=== PATIENT | male | born 1940 | race Caucasian/White ===

== ENCOUNTER 2021-11-10 07:37 | Outpatient (CLI) | payer MEDICARE, SELFPAY ==
--- NOTE | ~2021-11-10 | CT_ITS ---
EXAMINATION: CT abdomen pelvis w con INDICATION: Loss of appetite, constipation, history of colon cancer TECHNIQUE: Computed tomographic images of the abdomen and pelvis were obtained after the administrati on of 100 cc of Omnipaque 300 intravenous contrast. The dose-length product (DLP) was 299.75 mGy-cm. Automated exposure control and iterative reconstruction technique were employed. COMPARISON: None available FINDINGS: Minimal dependent atelectasis is present in the lung bases. The heart size is normal. The g allbladder is surgically absent. Punctate calcifications in an otherwise normal spleen likely represe nt healed granulomatous disease. The liver, pancreas, and adrenal glands are normal. Cysts of the kid neys measure up to 3.8 cm on the right. There is calcified atherosclerosis of the aorta and many of t he other arteries. A staple line is present in the colon in the left upper quadrant. There is moderat e lumbar spondylosis. . IMPRESSION: 1. No CT correlate for the patient's symptoms. Reviewed, dictated and finalized at location B.
[2021-11-10 08:01] LABS: Basophils Absolute Auto 0.03 K/mm3 (0.00-0.10); Basophils Percent Auto 0.4 % (0.0-1.0); Eosinophils Absolute Auto 0.14 K/mm3 (0.02-0.50); Eosinophils Percent Auto 1.8 % (1.0-6.0); Hematocrit 41.8 % (37.0-46.0); Immature Granulocyte Absolute 0.02 K/mm3 (0.00-0.00); Immature Granulocyte Percent A 0.3 % (0.0-0.0); Immature Reticulocyte Fraction 8.3 % (2.0-16.52); Lymphocytes Absolute Auto 2.46 K/mm3 (1.10-4.50); Lymphocytes Percent Auto 31.7 % (18.0-42.0); Mean Corpuscular HGB Conc 33.5 g/dL (32.0-36.0); Mean Corpuscular Hemoglobin 30.2 pg (27.0-31.0); Mean Corpuscular Volume 90.1 fL (78.0-102.0); Mean Platelet Volume 10.5 fl (8.7-11.0); Monocytes Absolute Auto 0.76 K/mm3 (0.10-0.90); Monocytes Percent Auto 9.8 % (2.0-11.0); Neutrophils Absolute Auto 4.4 K/mm3 (1.7-7.2); Platelet Count Result 224 K/mm3 (150-420); Red Blood Count 4.64 M/mm3 (4.70-6.10); Red Cell Distribution Width 13.1 % (11.6-14.4); Reticulocyte Hemoglobin Conten 34.4 pg (28.0-35.0); Reticulocyte Percent 1.08 % (0.50-1.50); Reticulocytes Absolute 0.05 M/mm3 (0.02-0.1); White Blood Count 7.8 K/mm3 (4.8-10.8)
[2021-11-10 08:09] LABS: MALB Creatinine Ratio 7.8 mg/g (0-30); Microalbumin Urine Random 28.5 mg/L
[2021-11-10 08:13] LABS: Add Urine Microscopic? YES; Appearance Urine Clear (Clear); Bilirubin Urine Negative (Negative); Blood Urine Negative (Negative); Color Urine Yellow (Yellow); Glucose Urine UA Negative (Negative); Ketones Urine Trace (Negative); Leukocyte Esterase Ur Negative LEU/UL (Negative); Nitrate Urine Negative (Negative); Protein Urine Negative (Negative); Specific Grav Ur 1.025 (1.010-1.020)
[2021-11-10 08:19] LABS: Bacteria Urine Trace /hpf; Mucus Urine Moderate /lpf; RBC Urine None seen /hpf (0-2); Squamous Epithelial Cell Urine Few /hpf (Few); WBC Urine 0-3 /hpf (0-3)
[2021-11-10 08:48] LABS: Alanine Aminotransferase 18 U/L (16-63); Albumin Level 3.7 g/dL (3.4-5.0); Alkaline Phosphatase 73 U/L (46-116); Anion Gap 6 mmol/L (8-16); Aspartate Amino Transferase 17 U/L (15-37); Bilirubin,Total 0.7 mg/dL (0.00-1.00); Blood Urea Nitrogen 31 mg/dL (7-18); Calcium 8.8 mg/dL (8.5-10.1); Carbon Dioxide 31 mmol/L (21-32); Chloride 102 mmol/L (98-108); Cholesterol 168 mg/dL (0-200); Estimated Glomerular Filt Rate 35; Ferritin 229 ng/mL (26-388); Free T4 Free Thyroxine 1.17 ng/dL (0.76-1.46); Glucose 100 mg/dL (70-99); HDL Direct 70 mg/dL (40-60); Iron 80 ug/dL (65-175); LDL Cholesterol Calculated 83 mg/dL (<130); Osmolality Calculated 294 mOsm/kg (285-295); Potassium 3.7 mmol/L (3.5-5.1); Prostate Specific Antigen 4.3 ng/mL (< OR = 4.0); Sodium 139 mmol/L (136-145); Thyroid Stimulating Hormone 1.97 uIU/mL (0.36-3.74); Total Protein 6.8 g/dL (6.4-8.2); Triglycerides 75 mg/dL (0-150); Vitamin B12 235 pg/mL (193-986)
[2021-11-14 16:38] LABS: Albumin 4.1 g/dL (3.8-4.8); Alpha 1 Globulin 0.3 g/dL (0.2-0.3); Alpha 2 Globulin 0.7 g/dL (0.5-0.9); Beta 1 Globulin 0.3 g/dL (0.4-0.6); Gamma Globulin 0.8 g/dL (0.8-1.7); Protein, Total 6.5 g/dL (6.1-8.1)
[2021-11-14 20:59] LABS: Red Blood Cell Folate 509 ng/mL RBC (>280)
[2021-11-15 20:22] LABS: Vitamin D 25 Hydroxy 37 ng/mL (30-100)
[2021-11-15 21:01] LABS: Carcinoembryonic Antigen 1.4 ng/mL (0.0-2.4)
== END 2021-11-10 07:38 | disposition home or self-care (01) ==
PROVIDERS: PCP Internal Medicine; Visit Provider Internal Medicine
DX: R10.9 Unspecified abdominal pain (principal); R63.4 Abnormal weight loss; Z85.038 Personal history of other malignant neoplasm of large intestine; R79.89 Other specified abnormal findings of blood chemistry; Z85.46 Personal history of malignant neoplasm of prostate; E11.65 Type 2 diabetes mellitus with hyperglycemia; N39.0 Urinary tract infection, site not specified; D64.0 Hereditary sideroblastic anemia; E78.5 Hyperlipidemia, unspecified; I10 Essential (primary) hypertension; E55.9 Vitamin D deficiency, unspecified
CPT/HCPCS: 36415; 74177; 80053; 80061; 81001; 82043; 82306; 82378; 82607; 82728; 82747; 83036; 83540; 84153; 84155; 84165; 84439; 84443; 85025; 85046; Q9967

== ENCOUNTER 2022-01-26 00:28 | Day surgery (SDC) | payer MEDICARE, SELFPAY ==
[2022-01-11 13:23] VITALS: BMI 23.2
[2022-01-26 06:52] VITALS: BP 139/59; PULSE 65; RESP 18; TEMP 36.2; O2SAT 97
[2022-01-26] MEDS: LACTATED RINGERS 1,000 ML 150 ML IV CONT (07:16)
--- NOTE | 2022-01-26 07:49 | WPDANESEPPF ---
Anes - Initial Pre Proc Eval Procedure: Operation Date: 01/26/22 08:00 Proposed Procedures p Esophagogastroduodenoscopy & Colonoscopy - Trae Araiza DO Date/Time: 01/26/22 07:49 Surgeon: Trae Araiza DO Pre Op Diagnosis: dysphagia, hx of colon ca Patient Data Age: 81 Gender: M Height: 1.8 m Weight: 72.4 kg Last Vital Signs Temp 97.1 F L 01/26/22 06:52 Pulse 65 01/26/22 06:52 Resp 18 01/26/22 06:52 BP 139/59 L 01/26/22 06:52 Pulse Ox 97 01/26/22 06:52 O2 Del Method Room Air 01/26/22 06:52 Allergies Allergy/AdvReac Type Severity Reaction Status Date / Time levofloxacin Allergy Hives Verified 01/26/22 06:51 Home Medications Medication Instructions Recorded Confirmed Type amlodipine 10 mg tablet 10 mg PO DAILY 01/11/22 01/11/22 History cyanocobalamin (vitamin B-12) 1,000 mcg PO DAILY 01/11/22 01/11/22 History 1,000 mcg tablet,extended release (Vitamin B-12 ER) docusate sodium 50 mg capsule 50 mg PO TID 01/11/22 01/11/22 History (Stool Softener) losartan 50 mg tablet 50 mg PO DAILY 01/11/22 01/11/22 History multivit with min-folic 1 tablet PO DAILY 01/11/22 01/11/22 History acid-lutein 200 mcg-137.5 mcg chewable tablet (Adult Multivitamin (w-lutein)) pantoprazole 40 mg tablet,delayed 40 mg PO BID 01/11/22 01/11/22 History release tamsulosin 0.4 mg capsule 0.4 mg PO DAILY 01/11/22 01/11/22 History Patient hx anesthesia problems: none Family hx anesthesia problems: none Results Review: All pre-operative results and documents have been reviewed as part of the pre-operative evaluation. FOR[facility], [facility] Social History Social History Smoking status: Never smoker Substance use type: does not use Living arrangements: other Additional living arrangements comments: Lives with Anes - Eval Final PreProcedure Day of Procedure 01/26/22 07:49 Patient weight: normal Heart: irregular rhythm Lungs: clear to auscultation Airway: Mallampati scale class II Neurological: alert and oriented Last oral intake: >/= 8 hours ASA classification: III Emergent: no Anesthetic plan: proceed Anesthesia type and monitoring: general GIVS and standard monitoring Results Review: All pre-operative results and documents have been reviewed as part of the pre-operative evaluation. Informed Consent: The patient's anesthetic plan and its attendant risks and benefits were discussed with the patient/family/POA. Questions were solicited and answers provided to the satisfaction of the patient/family/POA.
--- NOTE | 2022-01-26 07:54 | ECG_ITS ---
Measurements Intervals [place] Rate: 63 P: 49 ME: 159 QRS: 16 QRSD: 98 T: 43 QT: 431 QTc: 441 Interpretive Statements SINUS RHYTHM WITH MARKED SINUS ARRHYTHMIA BASELINE ARTIFACT- II, III, AVR , AVL, AVF BORDERLINE ECG NO PREVIOUS ECG AVAILABLE FOR COMPARISON Electronically Signed On 01-26-2022 8:03:22 CDT by Maximo Brown D.O.
--- NOTE | 2022-01-26 08:10 | PM.IMHP ---
H&P: HPI History of Present Illness Date/Time: 01/26/22 08:10 Chief Complaint: weight loss dysphagia Narrative: this is an 81-year-old man who presents for EGD and colonoscopy. He has a history of colon cancer and last had a colonoscopy about 5 years ago. He has also had some recent weight loss and has some difficulty swallowing solid foods. He denies any hematochezia or melena. Review of Systems Review of Systems: All systems reviewed & are unremarkable except as noted in HPI and below Constitutional: Constitutional: Denies chills, Denies fever(s), Denies headache(s) and Denies weight loss Eyes: Eyes: Denies change in vision ENT: Denies dizziness, Denies headache(s), Denies neck mass and Denies throat swelling Cardiovascular: Cardiovascular: Denies chest pain, Denies lightheadedness and Denies dyspnea Respiratory: Respiratory: Denies cough, Denies dyspnea and Denies wheezing Gastrointestinal: Gastrointestinal: Denies abdominal pain, Denies change in bowel habits, Denies nausea and Denies vomiting Genitourinary: Genitourinary: Denies hematuria and Denies dysuria Musculoskeletal: Musculoskeletal: Reports as per HPI Integumentary/Breasts: Skin/Breast: Reports as per HPI Neurologic: Denies dizziness and Denies headache(s) Allergic/Immunologic: Allergic/Immunologic: Denies throat swelling and Denies wheezing PMFSH Social History Social History Smoking status: Never smoker Substance use type: does not use Living arrangements: other Additional living arrangements comments: Lives with Meds Home Medications and Allergies Home Medications Medication Instructions Recorded Confirmed Type amlodipine 10 mg tablet 10 mg PO DAILY 01/11/22 01/11/22 History cyanocobalamin (vitamin B-12) 1,000 mcg PO DAILY 01/11/22 01/11/22 History 1,000 mcg tablet,extended release (Vitamin B-12 ER) docusate sodium 50 mg capsule 50 mg PO TID 01/11/22 01/11/22 History (Stool Softener) losartan 50 mg tablet 50 mg PO DAILY 01/11/22 01/11/22 History multivit with min-folic 1 tablet PO DAILY 01/11/22 01/11/22 History acid-lutein 200 mcg-137.5 mcg chewable tablet (Adult Multivitamin (w-lutein)) pantoprazole 40 mg tablet,delayed 40 mg PO BID 01/11/22 01/11/22 History release tamsulosin 0.4 mg capsule 0.4 mg PO DAILY 01/11/22 01/11/22 History Allergies Allergy/AdvReac Type Severity Reaction Status Date / Time levofloxacin Allergy Hives Verified 01/26/22 06:51 Vital Signs Vital Signs - 24 hr 01/26/22 06:52 Temperature 36.2 C L Pulse Rate 65 Respiratory Rate 18 Blood Pressure 139/59 L Pulse Oximetry 97 Oxygen Delivery Room Air Exam Const: General: no acute distress and alert Orientation/consciousness: patient oriented x3 HENMT: Head: normocephalic and atraumatic Ears: hearing grossly normal bilaterally General nose exam: Normal nares present Mouth: Yes Normal oral and palatal mucosa present Eyes: Periorbital: periorbital findings normal Sclera: sclerae normal EOM: EOMs intact bilaterally Neck: Neck: normal visual inspection, no lymphadenopathy and trachea midline Chest: Chest palpation & inspection: normal inspection of the chest Resp: Effort & Inspection: normal respiratory effort Auscultation: clear to auscultation bilaterally Cardio: Jugular venous distension: no JVD Rate: regular rate Rhythm: regular rhythm Heart sounds: S1 normal heart sound present and S2 normal heart sound present Peripheral pulses: Peripheral pulses 2+ throughout GI: Inspection: normal to inspection GI Palp: Yes Soft to palpation, No Tenderness to palpation present (GI), No Guarding due to palpation present (GI) and No Rebound tenderness present Percussion: Yes normal to percussion Auscultation: normal bowel sounds : General: Yes no CVA tenderness Back/Spine/Pelvis: Back: no CVA tenderness Neuro: General: patient oriented x3, no focal motor deficits and CN's II-XI intact darryl
--- NOTE | 2022-01-26 08:19 | SUR.OPER ---
EGD COMPLETED AT 08 COLON STARTED AT 08
[2022-01-26 08:47] VITALS: BP 130/46; PULSE 62; RESP 20; O2SAT 99
[2022-01-26 08:58] VITALS: BP 154/66; PULSE 54; RESP 15; O2SAT 99
[2022-01-26 09:12] VITALS: BP 157/77; PULSE 57; RESP 18; O2SAT 97
== END 2022-01-26 09:28 | disposition home or self-care (01) ==
PROVIDERS: PCP Internal Medicine; Visit Provider Surgery
PROC: 0DJ08ZZ Inspection of Upper Intestinal Tract, Via Natural or Artificial Opening Endoscopic (ICD-10-PCS; CPT 43235; principal; 2022-01-26 08:00)
DX: R63.4 Abnormal weight loss (principal); Z85.038 Personal history of other malignant neoplasm of large intestine; K57.30 Diverticulosis of large intestine without perforation or abscess without bleeding; Z98.0 Intestinal bypass and anastomosis status; K64.8 Other hemorrhoids; R13.19 Other dysphagia; K44.9 Diaphragmatic hernia without obstruction or gangrene; K29.00 Acute gastritis without bleeding; I49.9 Cardiac arrhythmia, unspecified
CPT/HCPCS: 45378; 43239; 87081; 93005; J2704; J7120

== ENCOUNTER 2022-01-30 16:11 | Emergency (ER) | payer MEDICARE, SELFPAY ==
--- NOTE | ~2022-01-30 | CT_ITS ---
EXAMINATION: CT abdomen pelvis w con DATE: 01/30/2022 18:35 INDICATION: Abdominal pain TECHNIQUE: Computed tomography (CT) of the abdomen and pelvis was performed with 100 mL Omnipaque-350 intravenous contrast. Automated exposure control and iterative reconstruction technique were employe d. The dose-length product was 365.53 mGy-cm. COMPARISON: 11/20/2021 FINDINGS: Central pulmonary arterial filling defects within segmental and subsegmental pulmonary arteries in th e right lower lobe consistent with pulmonary emboli. Groundglass opacities in the basilar segments of the right lower lobe consistent with secondary pulmonary infarcts. Linear/bandlike discoid atelectas is in the left lower lobe and lingula. Heart size is normal. No leftward bowing of the ventricular se ptum to suggest right heart strain. No pericardial or pleural effusion. Mild intrahepatic biliary yamileth mayra dilation likely related to prior cholecystectomy with surgical clips at the gallbladder fossa. A few tiny splenic calcific lesions consistent with old granulomatous disease. Pancreas, bilateral adre nal glands are normal. Bilateral renal cysts the largest on the right measuring up to 3.7 cm. Anastom otic suture line along the transverse colon. Bladder is normal. Mild prostatomegaly. Bilateral fat-co ntaining inguinal hernias, left greater than right with change of prior bilateral inguinal hernia rep airs. No free intraperitoneal gas or fluid. No pathologically enlarged abdominal or pelvic lymphadeno agus. There is calcified atherosclerosis of the aorta and many of the other arteries. Moderate lumba r spondylosis with 4 mm anterolisthesis L4 on L5. IMPRESSION: 1. 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 Dr. Iniguez discussed these findings with Dr. Gilliam at 7:18 PM. 2. No acute intra-abdominal/pelvic process. Reviewed, dictated and finalized at location A. IMPRESSION: 1. 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 Dr. Hermilo petit discussed these findings with Dr. Gilliam at 7:18 PM. 2. No acute intra-abdominal/pelvic process.
[2022-01-30 16:31] VITALS: BP 153/72; PULSE 74; RESP 22; TEMP 36.6; O2SAT 94
[2022-01-30 17:25] LABS: Appearance Urine Clear (Clear); Basophils Absolute Auto 0.03 K/mm3 (0.00-0.10); Basophils Percent Auto 0.3 % (0.0-1.0); Bilirubin Urine 1+ (Negative); Color Urine Yellow (Yellow); Eosinophils Absolute Auto 0.06 K/mm3 (0.02-0.50); Eosinophils Percent Auto 0.5 % (1.0-6.0); Glucose Urine UA Negative (Negative); Hematocrit 38.5 % (37.0-46.0); Hemoglobin 12.7 g/dL (12.4-15.3); Immature Granulocyte Absolute 0.03 K/mm3 (0.00-0.00); Immature Granulocyte Percent A 0.3 % (0.0-0.0); Ketones Urine 1+ (Negative); Leukocyte Esterase Ur Negative LEU/UL (Negative); Lymphocytes Absolute Auto 1.81 K/mm3 (1.10-4.50); Lymphocytes Percent Auto 15.8 % (18.0-42.0); Mean Corpuscular Hemoglobin 30.2 pg (27.0-31.0); Mean Corpuscular Volume 91.4 fL (78.0-102.0); Mean Platelet Volume 11.1 fl (8.7-11.0); Monocytes Absolute Auto 0.88 K/mm3 (0.10-0.90); Monocytes Percent Auto 7.7 % (2.0-11.0); Neutrophils Absolute Auto 8.7 K/mm3 (1.7-7.2); Neutrophils Percent Auto 75.4 % (50.0-70.0); Nitrate Urine Negative (Negative); Platelet Count Result 152 K/mm3 (150-420); Protein Urine 2+ (Negative); Red Blood Count 4.21 M/mm3 (4.70-6.10); Red Cell Distribution Width 13.2 % (11.6-14.4); Specific Grav Ur >= 1.030 (1.010-1.020); White Blood Count 11.5 K/mm3 (4.8-10.8)
[2022-01-30 17:32] LABS: Add Urine Microscopic? YES; Blood Urine Trace-Intact (Negative); RBC Urine 0-2 /hpf (0-2); Squamous Epithelial Cell Urine Few /hpf (Few); WBC Urine None seen /hpf (0-3)
[2022-01-30] MEDS: SODIUM CHLORIDE 0.9% IV 500 ML 999 ML IV CONT (17:32)
[2022-01-30 17:33] LABS: Bacteria Urine Trace /hpf; Mucus Urine Few /lpf
[2022-01-30] MEDS: MORPHINE SULFATE (*CRX) 4 MG/ML INJ IV PUSH (17:35)
[2022-01-30 17:37] LABS: Lipase 72 U/L (73-393)
[2022-01-30 17:40] LABS: Alanine Aminotransferase 18 U/L (16-63); Albumin Level 3.5 g/dL (3.4-5.0); Alkaline Phosphatase 84 U/L (46-116); Anion Gap 6 mmol/L (8-16); Aspartate Amino Transferase 15 U/L (15-37); Bilirubin,Total 1.1 mg/dL (0.00-1.00); Blood Urea Nitrogen 31 mg/dL (7-18); Calcium 8.9 mg/dL (8.5-10.1); Carbon Dioxide 29 mmol/L (21-32); Chloride 101 mmol/L (98-108); Estimated CRCL calculation 36 ml/min; Estimated Glomerular Filt Rate 47; Glucose 113 mg/dL (70-99); Osmolality Calculated 289 mOsm/kg (285-295); Potassium 3.9 mmol/L (3.5-5.1); Sodium 136 mmol/L (136-145); Total Protein 6.8 g/dL (6.4-8.2)
[2022-01-30 17:43] LABS: Lactic Acid Reflex 1.1 mmol/L (0.4-2.0)
[2022-01-30 17:45] LABS: Partial Thromboplastin Time 27.7 SEC (23.90-30.70)
--- NOTE | 2022-01-30 18:26 | ED.GENADULT ---
HPI - General Adult General Chief complaint: Abdominal Pain Stated complaint: stomach pains Time Seen by Provider: 01/30/22 16:47 History of Present Illness HPI narrative: Gonzalo presented to the emergency department with abdominal pain that started last night. He reports cramping abdominal pain in the right side of his abdomen. He had a colonoscopy 4 days ago but has not had a BM since. He has had a little nausea but no vomiting. He has had increased urinary frequency for the last few months. There are no fevers, chills, CP, cough or SOB reported. Related Data Home Medications Medication Instructions Recorded Confirmed amlodipine 10 mg tablet 10 mg PO DAILY 01/11/22 01/30/22 cyanocobalamin (vitamin B-12) 1,000 mcg PO DAILY 01/11/22 01/30/22 1,000 mcg tablet,extended release (Vitamin B-12 ER) docusate sodium 50 mg capsule 50 mg PO TID 01/11/22 01/30/22 (Stool Softener) losartan 50 mg tablet 50 mg PO DAILY 01/11/22 01/30/22 multivit with min-folic 1 tablet PO DAILY 01/11/22 01/30/22 acid-lutein 200 mcg-137.5 mcg chewable tablet (Adult Multivitamin (w-lutein)) pantoprazole 40 mg tablet,delayed 40 mg PO BID 01/11/22 01/30/22 release tamsulosin 0.4 mg capsule 0.4 mg PO DAILY 01/11/22 01/30/22 Allergies Allergy/AdvReac Type Severity Reaction Status Date / Time levofloxacin Allergy Hives Verified 01/30/22 16:43 Review of Systems Review of Systems: All systems reviewed & are unremarkable except as noted in HPI and below PMFSH Social History Social History Smoking status: Never smoker Substance use type: does not use Additional living arrangements comments: Lives with Exam Const: General: healthy appearing and no acute distress Nutritional Appearance: well nourished Orientation/consciousness: patient oriented x3 HENMT: Head: normal to inspection Ears: external ears normal General nose exam: Normal external nose present Eyes: Conjunctivae: conjunctivae normal Pupils: Equal, round and reactive pupils present EOM: EOMs intact bilaterally Neck: Neck: normal visual inspection Chest: Chest palpation & inspection: normal inspection of the chest Resp: Effort & Inspection: normal respiratory effort Auscultation: clear to auscultation bilaterally Cardio: Rate: regular rate Rhythm: regular rhythm GI: Other: Normal bowel sounds. TTP in the RLQ. No rebound tenderness or guarding. : Other: No CVA tenderness Skin: General skin exam: normal color Rashes: no rashes Neuro: General: patient oriented x3 and moves all extremities Extrem: General: normal to inspection Psych: Mental Status: mental status grossly normal Course Course Emergency Course: Given morphine and fluids EXAMINATION: CT abdomen pelvis w con DATE: 01/30/2022 18:35 INDICATION: Abdominal pain TECHNIQUE: Computed tomography (CT) of the abdomen and pelvis was performed with 100 mL Omnipaque-350 intravenous contrast. Automated exposure control and iterative reconstruction technique were employed. The dose-length product was 365.53 mGy-cm. COMPARISON: 11/20/2021 FINDINGS: Central pulmonary arterial filling defects within segmental and subsegmental pulmonary arteries in the right lower lobe consistent with pulmonary emboli. Groundglass opacities in the basilar segments of the right lower lobe consistent with secondary pulmonary infarcts. Linear/bandlike discoid atelectasis in the left lower lobe and lingula. Heart size is normal. No leftward bowing of the ventricular septum to suggest right heart strain. No pericardial or pleural effusion. Mild intrahepatic biliary ductal dilation likely related to prior cholecystectomy with surgical clips at the gallbladder fossa. A few tiny splenic calcific lesions consistent with old granulomatous disease. Pancreas, bilateral adrenal glands are normal. Bilateral renal cysts the largest on the right measuring up to 3.7 cm. Anastomotic suture line along the transverse colo
[2022-01-30] MEDS: ENOXAPARIN 100 MG/ML SYRINGE 74 MG SUB-Q (20:06)
--- NOTE | 2022-01-30 20:15 | PC.NURSE ---
pt heart rate 35-39. Md Suarez at bedside and pt is cleared for discharge.
--- NOTE | 2022-01-30 20:37 | PC.NURSE ---
pt cleared for discharge per Md Suarez (see previous note) and MD Boyer.
[2022-01-30 20:53] VITALS: BP 164/69; PULSE 38; RESP 18; TEMP 36.8; O2SAT 93
== END 2022-01-30 20:59 | disposition home or self-care (01) ==
PROVIDERS: Emergency Provider Family Medicine; PCP Internal Medicine
DX: I26.99 Other pulmonary embolism without acute cor pulmonale (principal)
CPT/HCPCS: 36415; 74177; 80053; 81001; 83605; 83690; 85025; 85610; 85730; 96361; 96372; 96374; 99284; J1650; J2270; J7040; Q9967

== ENCOUNTER 2022-03-31 09:32 | Outpatient (RCR) | payer MEDICARE, SELFPAY ==
[2022-03-13 10:24] LABS: INR 2.8; Prothrombin Time 27.8 Seconds (9.50-12.10)
[2022-03-20 10:27] LABS: INR 4.6; Prothrombin Time 44.2 Seconds (9.50-12.10)
[2022-03-24 10:41] LABS: INR 4.1
[2022-03-31 10:02] LABS: INR 2.2; Prothrombin Time 22.4 Seconds (9.50-12.10)
== END 2022-06-11 23:59 | disposition home or self-care (01) ==
LOC: CHSLAB 09:32
PROVIDERS: PCP Internal Medicine; Visit Provider Internal Medicine
DX: I48.91 Unspecified atrial fibrillation (principal)
CPT/HCPCS: 36415; 85610

== ENCOUNTER 2022-05-17 13:08 | Outpatient (CLI) | payer MEDICARE, SELFPAY ==
[2022-05-17 13:31] LABS: Basophils Absolute Auto 0.05 K/mm3 (0.00-0.10); Basophils Percent Auto 0.6 % (0.0-1.0); Eosinophils Absolute Auto 0.06 K/mm3 (0.02-0.50); Eosinophils Percent Auto 0.8 % (1.0-6.0); Hematocrit 40.1 % (37.0-46.0); Hemoglobin 13.2 g/dL (12.4-15.3); Immature Granulocyte Absolute 0.02 K/mm3 (0.00-0.00); Immature Granulocyte Percent A 0.3 % (0.0-0.0); Lymphocytes Absolute Auto 3.12 K/mm3 (1.10-4.50); Lymphocytes Percent Auto 39.1 % (18.0-42.0); Mean Corpuscular HGB Conc 32.9 g/dL (32.0-36.0); Mean Corpuscular Hemoglobin 29.8 pg (27.0-31.0); Mean Corpuscular Volume 90.5 fL (78.0-102.0); Mean Platelet Volume 10.3 fl (8.7-11.0); Monocytes Absolute Auto 0.56 K/mm3 (0.10-0.90); Neutrophils Absolute Auto 4.2 K/mm3 (1.7-7.2); Neutrophils Percent Auto 52.2 % (50.0-70.0); Platelet Count Result 213 K/mm3 (150-420); Red Blood Count 4.43 M/mm3 (4.70-6.10); Red Cell Distribution Width 14.1 % (11.6-14.4)
[2022-05-17 13:44] LABS: INR 2.1; Prothrombin Time 21.5 Seconds (9.50-12.10)
[2022-05-17 13:46] LABS: Alanine Aminotransferase 16 U/L (16-63); Albumin Level 3.8 g/dL (3.4-5.0); Alkaline Phosphatase 75 U/L (46-116); Anion Gap 6 mmol/L (8-16); Aspartate Amino Transferase 13 U/L (15-37); Bilirubin,Total 0.7 mg/dL (0.00-1.00); Blood Urea Nitrogen 29 mg/dL (7-18); Calcium 8.5 mg/dL (8.5-10.1); Carbon Dioxide 30 mmol/L (21-32); Chloride 101 mmol/L (98-108); Estimated Glomerular Filt Rate 38; Glucose 101 mg/dL (70-99); Osmolality Calculated 289 mOsm/kg (285-295); Potassium 4.1 mmol/L (3.5-5.1); Sodium 137 mmol/L (136-145); Total Protein 6.8 g/dL (6.4-8.2)
== END 2022-05-17 13:09 | disposition home or self-care (01) ==
LOC: CHSLAB 13:11
PROVIDERS: PCP Internal Medicine; Visit Provider Internal Medicine
DX: R10.31 Right lower quadrant pain (principal); N18.30 Chronic kidney disease, stage 3 unspecified; Z79.01 Long term (current) use of anticoagulants
CPT/HCPCS: 36415; 80053; 85025; 85610

== ENCOUNTER 2022-05-18 13:54 | Outpatient (CLI) | payer MEDICARE, SELFPAY ==
--- NOTE | ~2022-05-18 | CT_ITS ---
EXAMINATION: CT abdomen pelvis wo con DATE: 05/18/2022 14:23 INDICATION: Acute right upper quadrant abdominal pain. TECHNIQUE: Computed tomography (CT) of the abdomen and pelvis was performed without intravenous contr ast. Automated exposure control and iterative reconstruction technique were employed. The dose-length product was 308.92 mGy-cm. COMPARISON: CT abdomen and pelvis 01/30/2022 FINDINGS: The visualized portions of the lung bases demonstrate mild atelectasis and scarring. Calcif ied right lung nodules are consistent with old granulomatous disease. No pleural effusion. The heart size is normal. No pericardial effusion. Calcifications in the liver and spleen are consistent with o ld granulomatous disease. There are changes of cholecystectomy. The pancreas and adrenal glands are n ormal. There is cortical thinning of the kidneys. There are cysts in the kidneys measuring up to 3.9 cm on the right. The prostate is mildly enlarged. There is diverticulosis of the colon without eviden ce of diverticulitis. There is an anastomosis in the colon. The appendix is normal. There are no dila namita loops of bowel. There are changes of bilateral inguinal hernia repairs. There is prominent fat in left inguinal canal that may be a recurrent hernia or the normal postoperative appearance. There are no pathologically enlarged lymph nodes. There is no free intraperitoneal fluid. There is severe lumb ar spondylosis. Lumbar levocurvature is noted. IMPRESSION: 1. No specific etiology for the patient's symptoms. Reviewed, dictated and finalized at location A. [facility]
== END 2022-05-18 13:55 | disposition home or self-care (01) ==
LOC: CHSIMG 13:56
PROVIDERS: PCP Internal Medicine; Visit Provider Internal Medicine
DX: R10.31 Right lower quadrant pain (principal); Z79.01 Long term (current) use of anticoagulants; N18.30 Chronic kidney disease, stage 3 unspecified
CPT/HCPCS: 74176

== ENCOUNTER 2022-07-31 10:06 | Outpatient (CLI) | payer MEDICARE, SELFPAY ==
[2022-07-31 10:23] LABS: Basophils Absolute Auto 0.04 K/mm3 (0.00-0.10); Basophils Percent Auto 0.6 % (0.0-1.0); Eosinophils Absolute Auto 0.12 K/mm3 (0.02-0.50); Eosinophils Percent Auto 1.7 % (1.0-6.0); Hematocrit 40.1 % (37.0-46.0); Hemoglobin 13.4 g/dL (12.4-15.3); Immature Granulocyte Absolute 0.01 K/mm3 (0.00-0.00); Immature Granulocyte Percent A 0.1 % (0.0-0.0); Lymphocytes Absolute Auto 2.88 K/mm3 (1.10-4.50); Lymphocytes Percent Auto 41.1 % (18.0-42.0); Mean Corpuscular HGB Conc 33.4 g/dL (32.0-36.0); Mean Corpuscular Hemoglobin 30.3 pg (27.0-31.0); Mean Corpuscular Volume 90.7 fL (78.0-102.0); Mean Platelet Volume 10.7 fl (8.7-11.0); Monocytes Absolute Auto 0.53 K/mm3 (0.10-0.90); Monocytes Percent Auto 7.6 % (2.0-11.0); Neutrophils Absolute Auto 3.4 K/mm3 (1.7-7.2); Neutrophils Percent Auto 48.9 % (50.0-70.0); Platelet Count Result 205 K/mm3 (150-420); Red Blood Count 4.42 M/mm3 (4.70-6.10); Red Cell Distribution Width 13.5 % (11.6-14.4)
[2022-07-31 11:42] LABS: Alanine Aminotransferase 19 U/L (16-63); Albumin Level 3.7 g/dL (3.4-5.0); Alkaline Phosphatase 80 U/L (46-116); Anion Gap 8 mmol/L (8-16); Aspartate Amino Transferase 17 U/L (15-37); Bilirubin,Total 0.6 mg/dL (0.00-1.00); Blood Urea Nitrogen 28 mg/dL (7-18); Calcium 8.8 mg/dL (8.5-10.1); Carbon Dioxide 30 mmol/L (21-32); Chloride 105 mmol/L (98-108); Estimated Glomerular Filt Rate 40; Glucose 106 mg/dL (70-99); NT Pro B Type Natriuretic Pept 1088 pg/mL (0-450); Osmolality Calculated 301 mOsm/kg (285-295); Potassium 4.4 mmol/L (3.5-5.1); Sodium 143 mmol/L (136-145); Total Protein 6.6 g/dL (6.4-8.2); Uric Acid 5.4 mg/dL (3.5-7.2)
[2022-07-31 11:43] LABS: CRP < 0.5 mg/dL (0.0-0.9)
== END 2022-07-31 10:07 | disposition home or self-care (01) ==
LOC: CHSLAB 10:09
PROVIDERS: PCP Internal Medicine; Visit Provider Nurse Practitioner Family
DX: M79.89 Other specified soft tissue disorders (principal); I50.9 Heart failure, unspecified; M79.673 Pain in unspecified foot
CPT/HCPCS: 36415; 80053; 83880; 84550; 85025; 86140

== ENCOUNTER 2022-08-11 13:26 | Outpatient (CLI) | payer MEDICARE, SELFPAY ==
--- NOTE | 2022-08-11 14:12 | ECHO_ITS ---
Patient Info Name: Gonzalo Hernandez Age: 82 years : 1940 Gender: Male Ht: 72 in Wt: 174 lbs BSA: 2.00 m2 HR: 66 bpm BP: 177 / 75 mmHg Technical Quality: Good Exam Date: 08/11/2022 1:27 PM Exam Location: [facility] Patient Status: Outpatient Admit Date: 08/11/2022 Staff Ordering Physician: Monique Sandy MD Ore Crusher: Tom Kohler RDCS, RT Attending Provider: Monique Sandy MD Referring Physician: Du COWART; Exam Type: CA echo doppler color flow Study Info Indications - lower extremity edema I50.9 - Heart failure, unspecified Complete two-dimensional, color flow and Doppler transthoracic echocardiogram is performed. Strain analysis performed. Summary 1. Complete two-dimensional, color flow and Doppler transthoracic echocardiogram is performed. 2. Left ventricular chamber dimension is normal. 3. Left ventricular systolic function is normal, estimated at 55-60%. 4. There is mild concentric increased left ventricular wall thickness. 5. The left ventricular diastolic function is abnormal. 6. E/e' 18 is elevated. 7. Global longitudinal strain is abnormal at -13.1%. 8. Left atrial chamber dimension is mildly enlarged. 9. There is mild aortic valve sclerosis. 10. There is mild mitral valve regurgitation. 11. There is trace tricuspid valve regurgitation. 12. No pulmonary hypertension, estimated pulmonary arterial systolic pressure is 36 mmHg. 13. There is trivial pericardial effusion. Left Ventricle E/e' 18 is elevated. Global longitudinal strain is abnormal at -13.1%. Left ventricular chamber dimension is normal. Left ventricular systolic function is normal, estimated at 55-60%. There is mild concentric increased left ventricular wall thickness. The left ventricular diastolic function is abnormal. Right Ventricle Right ventricular systolic function is normal and with normal TAPSE 2.1 cm. Right ventricular chamber dimension is normal. Left Atria Left atrial chamber dimension is mildly enlarged. Right Atria Right atrial chamber dimension is normal. Aortic Valve The aortic valve is trileaflet. There is mild aortic valve sclerosis. There is no aortic valve stenosis. There is no aortic valve regurgitation. Pulmonic Valve There is no pulmonic regurgitation. Mitral Valve There is no mitral valve stenosis. There is mild mitral valve regurgitation. Tricuspid Valve There is trace tricuspid valve regurgitation. No pulmonary hypertension, estimated pulmonary arterial systolic pressure is 36 mmHg. Pericardium/Pleural There is trivial pericardial effusion. Inferior Vena Cava Normal inferior vena cava with >50% collapse upon inspiration consistent with normal right atrial pressure, 5 mmHg. Aorta The aortic root size at the sinus of Valsalva is normal. Left Ventricular Outflow Tract Name Value Normal LVOT 2D LVOT Diameter 2.0 cm LVOT Doppler LVOT Peak Velocity 95 cm/s LVOT Peak Gradient 2 mmHg LVOT Mean Gradient 1 mmHg LVOT VTI 26 cm
== END 2022-08-11 13:27 | disposition home or self-care (01) ==
LOC: CHSIMG 13:27
PROVIDERS: PCP Internal Medicine; Visit Provider Internal Medicine
DX: I50.9 Heart failure, unspecified (principal); I08.0 Rheumatic disorders of both mitral and aortic valves
CPT/HCPCS: 93306

== ENCOUNTER 2022-08-25 16:12 | Emergency (ER) | payer MEDICARE, SELFPAY ==
[2022-08-25] VITALS (21 sets, daily range): BP systolic 138–231; BP diastolic 53–81; PULSE 66–84; RESP 14–28; TEMP 36.6; O2SAT 96–100
--- NOTE | ~2022-08-25 | CT_ITS ---
Non-contrast Head CT History: Headache, weakness Technique: Axial non-contrast imaging of the brain was performed. Dose reduction technique was used on this scan by utilizing automated exposure control and iterative reconstruction technique. The dose -length product (DLP) was 605.33 mGy-cm. Findings: There is no evidence of intracranial hemorrhage, mass lesion, or acute infarct. Brain par enchyma appears normal. The ventricles and subarachnoid spaces are normal in size. The calvarium ap pears normal. The visualized paranasal sinuses and mastoid air cells are clear. Impression: No significant abnormality seen. Reviewed, dictated and finalized at location . Impression: No significant abnormality seen.
--- NOTE | 2022-08-25 16:32 | ECG_ITS ---
Measurements Intervals [place] Rate: 61 P: 47 MD: 156 QRS: 36 QRSD: 101 T: 49 QT: 435 QTc: 439 Interpretive Statements SINUS RHYTHM WITH OCCASIONAL VENTRICULAR PREMATURE COMPLEXES WITH OCCASIONAL SUPRAVENTRICULAR PREMATURE COMPLEXES NONSPECIFIC ST & T-WAVE ABNORMALITY ABNORMAL ECG COMPARED TO ECG 01/26/2022 08:03:31 PVC IS DEMONSTRATED Electronically Signed On 08-26-2022 7:47:01 CDT by Conor Ruiz M.D.
--- NOTE | 2022-08-25 16:33 | ED.GENADULT ---
HPI - General Adult General Chief complaint: Dizziness Stated complaint: high blood pressure, dizziness, headache Time Seen by Provider: 08/25/22 16:22 History of Present Illness HPI narrative: the patient is an 82-year-old male with history of hypertension that used to be on losartan 50 mg daily and amlodipine 10 mg daily that was changed recently to 50 mg losartan b.i.d. with discontinuation of the amlodipine. He was seen here 01/30/2022 for a pulmonary embolus and was placed on Eliquis with subsequent was changed to warfarin which he currently is on. At that time, his blood pressure was 153/72. History of GERD hypertension and colon cancer. Last echocardiogram 08/11/2022 revealed an LV ejection fraction of 55-60% with mild left ventricular hypertrophy. The patient takes his blood pressure daily. His machine appeared not to be working today and was giving him an error message. He went to the pharmacy whereby he also got another air message. The pharmacist checked his blood pressure was quite elevated, 210/107. He was referred here for further evaluation due to his hypertension. He did take his losartan this morning and the 2 doses of losartan yesterday but missed the evening dose of losartan the previous day, 08/23/2022. Other associated symptoms include mild dizziness and mild discomfort in both temples. No chest pain or dyspnea. No nausea vomiting. No vertigo. No other symptoms. Related Data Home Medications Medication Instructions Recorded Confirmed cyanocobalamin (vitamin B-12) 1,000 mcg PO DAILY 01/11/22 08/25/22 1,000 mcg tablet,extended release (Vitamin B-12 ER) docusate sodium 50 mg capsule 50 mg PO TID 01/11/22 08/25/22 (Stool Softener) losartan 50 mg tablet 50 mg PO BID 01/11/22 08/25/22 multivit with min-folic 1 tablet PO DAILY 01/11/22 08/25/22 acid-lutein 200 mcg-137.5 mcg chewable tablet (Adult Multivitamin (w-lutein)) pantoprazole 40 mg tablet,delayed 40 mg PO BID 01/11/22 08/25/22 release tamsulosin 0.4 mg capsule 0.4 mg PO DAILY 01/11/22 08/25/22 finasteride 5 mg tablet 5 mg PO DAILY 08/25/22 08/25/22 warfarin 4 mg tablet 4 mg PO DAILY 08/25/22 08/25/22 Allergies Allergy/AdvReac Type Severity Reaction Status Date / Time levofloxacin Allergy Hives Verified 01/30/22 16:43 Review of Systems Review of Systems: All systems reviewed & are unremarkable except as noted in HPI and below Constitutional: Constitutional: Reports as per HPI, Reports no additional constitutional complaints, Denies chills, Denies excessive sweating, Denies fatigue, Denies fever(s), Reports headache(s) (mild) and Denies weakness Eyes: Eyes: Reports as per HPI, Reports no additional eye complaints, Denies change in vision and Denies photophobia ENT: Reports system reviewed and no additional complaints, except as documented, Reports as per HPI, Denies dysphagia, Denies vertigo, Reports dizziness (mild), Denies lip swelling, Denies nasal congestion, Denies sore throat, Denies throat swelling and Denies tongue swelling Cardiovascular: Cardiovascular: Reports as per HPI, Reports no additional cardiovascular complaints, Denies chest pain, Denies syncope, Denies rapid heart rate and Denies dyspnea Respiratory: Respiratory: Reports as per HPI, Reports no additional respiratory complaints, Denies chest congestion, Denies cough, Denies dyspnea and Denies wheezing Gastrointestinal: Gastrointestinal: Reports as per HPI, Reports no additional gastrointestinal complaints, Denies abdominal pain, Denies constipation, Denies dysphagia, Denies diarrhea, Denies nausea and Denies vomiting Genitourinary: Genitourinary: Reports as per HPI, Denies hematuria, Denies oliguria, Denies dysuria, Denies urinary frequency, Denies urinary incontinence and Denies urinary urgency Musculoskeletal: Musculoskeletal: Reports no additional musculoskeletal complaints, Denies back pain, Denies myalgias, Denies arthralgias, Denies joint swelling and Denies
[2022-08-25] MEDS: ACETAMINOPHEN 500 MG TABLET 1000 MG PO (16:54)
[2022-08-25 16:55] LABS: Basophils Absolute Auto 0.03 K/mm3 (0.00-0.10); Basophils Percent Auto 0.4 % (0.0-1.0); Eosinophils Absolute Auto 0.08 K/mm3 (0.02-0.50); Eosinophils Percent Auto 1.2 % (1.0-6.0); Hematocrit 39.7 % (37.0-46.0); Hemoglobin 12.8 g/dL (12.4-15.3); Immature Granulocyte Absolute 0.01 K/mm3 (0.00-0.00); Immature Granulocyte Percent A 0.1 % (0.0-0.0); Lymphocytes Absolute Auto 2.25 K/mm3 (1.10-4.50); Lymphocytes Percent Auto 33.5 % (18.0-42.0); Mean Corpuscular HGB Conc 32.2 g/dL (32.0-36.0); Mean Corpuscular Hemoglobin 29.7 pg (27.0-31.0); Mean Corpuscular Volume 92.1 fL (78.0-102.0); Monocytes Absolute Auto 0.55 K/mm3 (0.10-0.90); Monocytes Percent Auto 8.2 % (2.0-11.0); Neutrophils Absolute Auto 3.8 K/mm3 (1.7-7.2); Neutrophils Percent Auto 56.6 % (50.0-70.0); Platelet Count Result 205 K/mm3 (150-420); Red Blood Count 4.31 M/mm3 (4.70-6.10); Red Cell Distribution Width 13.6 % (11.6-14.4); White Blood Count 6.7 K/mm3 (4.8-10.8)
[2022-08-25] MEDS: hydrALAZINE HCL 20 MG/ML VIAL IV PUSH (16:57)
[2022-08-25 17:09] LABS: INR 2.3; Partial Thromboplastin Time 34.2 SEC (23.90-30.70); Prothrombin Time 23.5 Seconds (9.50-12.10)
[2022-08-25 17:11] LABS: Appearance Urine Clear (Clear); Bilirubin Urine Negative (Negative); Color Urine Light Yellow (Yellow); Glucose Urine UA Negative (Negative); Ketones Urine Negative (Negative); Leukocyte Esterase Ur Negative LEU/UL (Negative); Nitrate Urine Negative (Negative); Protein Urine 1+ (Negative); Urobilinogen Urine 0.2 mg/dL (0.2-1.0)
[2022-08-25 17:16] LABS: Add Urine Microscopic? YES; Bacteria Urine Rare /hpf; Blood Urine Trace-lysed (Negative); Squamous Epithelial Cell Urine Few /hpf (Few); WBC Urine None seen /hpf (0-3)
[2022-08-25 17:18] LABS: Alanine Aminotransferase 17 U/L (16-63); Albumin Level 3.4 g/dL (3.4-5.0); Alkaline Phosphatase 75 U/L (46-116); Anion Gap 7 mmol/L (8-16); Aspartate Amino Transferase 18 U/L (15-37); Bilirubin,Total 0.5 mg/dL (0.00-1.00); Blood Urea Nitrogen 22 mg/dL (7-18); Calcium 8.3 mg/dL (8.5-10.1); Carbon Dioxide 31 mmol/L (21-32); Chloride 106 mmol/L (98-108); Estimated CRCL calculation 37 ml/min; Estimated Glomerular Filt Rate 49; Glucose 105 mg/dL (70-99); NT Pro B Type Natriuretic Pept 5678 pg/mL (0-450); Osmolality Calculated 301 mOsm/kg (285-295); Potassium 4.1 mmol/L (3.5-5.1); Sodium 144 mmol/L (136-145); Total Protein 6.5 g/dL (6.4-8.2); Troponin I 24.7 ng/L (0.00-60.4)
--- NOTE | 2022-08-25 17:18 | PC.NURSE ---
Pt stands bedside to use urinal per self, at bedside, pt c/o some dizziness, but no other c/o. Call byrd at pt side.
[2022-08-25] MEDS: hydrALAZINE HCL 20 MG/ML VIAL 10 MG IV PUSH (18:30)
--- NOTE | 2022-08-25 18:33 | PC.NURSE ---
Pt stands bedside per self to use urinal and back to bed, he denies any sx at this time and denies dizziness at this time. Monitoring BP p meds given, will continue to assess.
== END 2022-08-25 19:15 | disposition home or self-care (01) ==
PROVIDERS: Emergency Provider Emergency Medicine; PCP Internal Medicine
DX: I16.9 Hypertensive crisis, unspecified (principal); R42 Dizziness and giddiness; Z79.01 Long term (current) use of anticoagulants; Z85.038 Personal history of other malignant neoplasm of large intestine
CPT/HCPCS: 36415; 70450; 80053; 81001; 83880; 84484; 85025; 85610; 85730; 93005; 96374; 96376; 99284; J0360

== ENCOUNTER 2022-11-17 08:56 | Outpatient (CLI) | payer MEDICARE, SELFPAY ==
[2022-11-17 09:47] LABS: Anion Gap 5 mmol/L (8-16); Blood Urea Nitrogen 31 mg/dL (7-18); Calcium 8.9 mg/dL (8.5-10.1); Carbon Dioxide 31 mmol/L (21-32); Chloride 105 mmol/L (98-108); Estimated Glomerular Filt Rate 41; Glucose 111 mg/dL (70-99); Osmolality Calculated 299 mOsm/kg (285-295); Potassium 4.2 mmol/L (3.5-5.1); Sodium 141 mmol/L (136-145)
[2022-11-17 13:58] LABS: INR 2.7; Prothrombin Time 27.5 Seconds (9.50-12.10)
== END 2022-11-17 08:57 | disposition home or self-care (01) ==
LOC: CHSLAB 08:58
PROVIDERS: PCP Anesthesiology; Visit Provider Anesthesiology
DX: Z01.818 Encounter for other preprocedural examination (principal); Z79.899 Other long term (current) drug therapy; Z79.01 Long term (current) use of anticoagulants
CPT/HCPCS: 36415; 80048; 85610; 85730

== ENCOUNTER 2022-11-23 03:20 | Day surgery (SDC) | payer MEDICARE, SELFPAY ==
[2022-11-16 14:32] VITALS: BMI 22.6
--- NOTE | 2022-11-16 14:53 | PC.NURSE ---
Report to the Outpatient Waiting Room, entrance under the green pavilion located off [facility], at time ___0600____ on date _11/23/22 . Planned Procedure Time: ___729 . Time changes happen often and if your time is changed the preop area will call you the afternoon before. - You and your visitor will be asked to self-screen and do not enter if you have any COVID symptoms. - A mask is optional within the hospital at this time. Patients may have clear liquids (water, carbonated beverages, clear teas, apple juice) until 3 hours prior to surgery (0430 AM) with a maximum of 20 ounces. - No food from midnight until time of surgery - Infants may have breast milk until 4 hours before surgery, formula 6 hours prior to surgery. - Children will be allowed to drink immediately following surgery. If applicable, please bring a bottle or sippy cup to assist with drinking. Juice, water, soda, and popsicles are readily available. For infants on formula, please bring formula the day of surgery. Pacifiers are allowed. Take the following medications with a SIP of water the morning of surgery: _NONE_ DO NOT STOP ANY OF YOUR OTHER PRESCRIPTION MEDICATIONS PRIOR TO SURGERY ?EXCEPT THE FOLLOWING Medications to discontinue per ANESTHESIA -_MULTIVITAMIN 3 DAYS PRIOR TO SURGERY, Date to take last dose 11/19/22_ Please no make-up, nail serbian, hairspray, perfume, deodorant, or body powder the day of surgery. No jewelry (including any body piercings) or valuables the day of surgery, leave them at home. Please take a shower or bath the night before, or the morning of, surgery with an antibacterial soap. Wear comfortable, loose fitting clothing. Children are encouraged to wear pajamas. - Jewelry must be removed prior to entering the operating room. Rings and piercings that are not removed may be cut off. - The hospital will not accept responsibility for valuables. - Please leave all valuables, including medications, at home the day of surgery. If you are going home after surgery, a licensed route driver salesperson must drive you home. - NO public transportation without another adult if you receive anesthesia. - We recommend that an adult stay with you for 24 hours following discharge. - We also recommend that you do not drive, make important decision, drink alcoholic beverages, or take any drugs that were not prescribed by your health care provider for at least 24 hours after your discharge time. For Pediatric surgeries, we recommend two adults accompany the child home. Follow any additional instructions given to you from your surgeon. If you or anyone in your household have experienced Covid symptoms in the past week, please notify your surgeon or the nurse liaison at the phone number below for possible testing. Telephone instructions given to ____PATIENT and asked if any additional questions and then verbalized understanding. Patient advised to call surgeon office or pre surgery nurse liaison [phone] if any additional questions.
[2022-11-23] VITALS (9 sets, daily range): BP systolic 131–184; BP diastolic 51–69; PULSE 32–68; RESP 12–18; TEMP 36.8; O2SAT 94–100
--- NOTE | 2022-11-23 06:53 | ECG_ITS ---
Measurements Intervals [place] Rate: 54 P: 43 DC: 157 QRS: 18 QRSD: 105 T: 31 QT: 444 QTc: 422 Interpretive Statements SINUS BRADYCARDIA WITH SINUS ARRHYTHMIA NONSPECIFIC ST ABNORMALITY- ANTEROLAT/HIGH LAT LEADS BORDERLINE ECG COMPARED TO ECG 08/25/2022 16:46:05 SINUS BRADYCARDIA NOW PRESENT SINUS ARRHYTHMIA NOW PRESENT Electronically Signed On 11-23-2022 8:51:43 CDT by Maximo Brown D.O.
[2022-11-23] MEDS: LACTATED RINGERS 1,000 ML 30 ML IV CONT (07:15)
--- NOTE | 2022-11-23 07:20 | WPDHPUPDATE1 ---
History and Physical Update Update Date/Time: 11/23/22 07:20 History and Physical has been reviewed, including an updated exam of the patient. There are NO changes in the patient's condition. Risks, benefits, and alternatives have been discussed and questions answered. Patient agrees to proceed with procedure.
[2022-11-23 07:42] LABS: INR 2.8; Prothrombin Time 31.1 Seconds (11.1-14.7)
--- NOTE | 2022-11-23 08:03 | WPDANESEPPF ---
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 with Frozen Section and Local Tissue Transfer or Full Thickness Skin Graft - Brad Springer MD Date/Time: 11/23/22 08:03 Surgeon: Brad Springer MD Pre Op Diagnosis: basal cell carcinoma r nasal lobule Patient Data Age: 82 Gender: M Height: 1.81 m Weight: 74.4 kg Last Vital Signs Temp 36.8 C 11/23/22 06:33 Pulse 56 L 11/23/22 06:50 Resp 18 11/23/22 06:33 BP 184/66 H 11/23/22 06:50 Pulse Ox 100 11/23/22 06:33 O2 Del Method Room Air 11/23/22 06:33 Allergies Allergy/AdvReac Type Severity Reaction Status Date / Time levofloxacin Allergy Hives Verified 11/16/22 14:21 Home Medications Medication Instructions Recorded Confirmed Type cyanocobalamin (vitamin B-12) 1,000 mcg PO DAILY 01/11/22 11/16/22 History 1,000 mcg tablet,extended release (Vitamin B-12 ER) docusate sodium 50 mg capsule 50 mg PO TID 01/11/22 11/16/22 History (Stool Softener) losartan 50 mg tablet 50 mg PO BID 01/11/22 11/16/22 History multivit with min-folic 1 tablet PO DAILY 01/11/22 11/16/22 History acid-lutein 200 mcg-137.5 mcg chewable tablet (Adult Multivitamin (w-lutein)) finasteride 5 mg tablet 5 mg PO DAILY 08/25/22 11/16/22 History warfarin 4 mg tablet 4 mg PO DAILY 08/25/22 11/16/22 History hydralazine 10 mg tablet 50 mg PO TID 10/09/22 11/16/22 History hydrochlorothiazide 25 mg tablet 25 mg PO DAILY #30 tabs 10/09/22 11/16/22 Rx cholecalciferol (vitamin D3) 25 25 mcg PO DAILY 11/16/22 11/16/22 History mcg (1,000 unit) capsule terazosin 2 mg capsule 2 mg HS 11/16/22 11/16/22 History Laboratory Tests 11/23/22 07:01 PT 31.1 H Seconds (11.1-14.7) INR 2.8 APTT 39.0 H SECONDS (22.3-36.8) Patient hx anesthesia problems: none Family hx anesthesia problems: none Results Review: All pre-operative results and documents have been reviewed as part of the pre-operative evaluation. [facility] Social History Social History Smoking status: Never smoker Second hand tobacco smoke exposure: No Alcohol intake: never Substance use: never Substance use type: does not use Living arrangements: with family Additional living arrangements comments: Lives with Spiritual care concerns: No Anes - Eval Final PreProcedure Day of Procedure 11/23/22 08:03 Patient weight: normal Heart: bradycardia Lungs: clear to auscultation Airway: Mallampati scale class II Neurological: other (alert) Last oral intake: >/= 8 hours ASA classification: III Emergent: no Anesthetic plan: proceed Anesthesia type and monitoring: general LMA and standard monitoring Results Review: All pre-operative results and documents have been reviewed as part of the pre-operative evaluation. Informed Consent: The patient's anesthetic plan and its attendant risks and benefits were discussed with the patient/family/POA. Questions were solicited and answers provided to the satisfaction of the patient/family/POA.
[2022-11-23] MEDS: LIDO 1%/EPINEPHRINE 1:100,000 20 ML VIAL 10 ML INFILTRATE (09:21)
--- NOTE | 2022-11-23 13:26 | W.PM.PROC2 ---
Procedure Note - Detailed Date of Procedure 11/23/22 Pre-op Diagnosis basal cell carcinoma r nasal lobule Post-op Diagnosis Same Procedure Performed 1.8 cm excision of basal cell carcinoma of the right nasal lobule with frozen section and complex repair 3.5 cm Surgeon Brad Springer MD Anesthesia MAC Indications positive biopsy Description of Procedure the biopsy site on the right side of the nose at the upper lobule was marked on the patient in the holding area. The prior biopsy indicated basal cell carcinoma with a positive deep margin. The patient was taken to the operating room where he was placed supine on the operating table. He was given IV sedation and his face and neck area were prepped and draped in usual fashion. The site was carefully examined and marked for the new excision. This was widely infiltrated with 1% lidocaine with epinephrine. The incision was carried out through the full-thickness of skin and subcutaneous tissue down to the deep fascia. The specimen was marked at the most superior aspect for 12 o'clock and sent for frozen section. The pathologist reported that there was basal cell carcinoma but that all margins were free. Examining this wound resulted in the plan to close this in complex fashion. The wound margins were extensively undermined especially laterally to exceed the with of the specimen. There was undermined in all directions allowing mobilization of the margins and closure with intradermal 4-0 Vicryl suture read draping the skin on both sides. Standing cones were removed both ends and the skin was closed with interrupted 5 0 nylon suture. Bacitracin ointment was applied. The patient was discharged with instructions in wound care and follow-up. He has a prescription for tramadol 50 mg 8. Estimated Blood Loss 5 Drains No Packing No Pathology Yes Complications No immediate complications Condition Stable Disposition Same day
== END 2022-11-23 11:31 | disposition home or self-care (01) ==
PROVIDERS: Anesthesiology; PCP Internal Medicine; Visit Provider Plastic Surgery
PROC: (CPT 11642; principal; 2022-11-23 08:30)
DX: C44.311 Basal cell carcinoma of skin of nose (principal); Z79.899 Other long term (current) drug therapy; Z79.01 Long term (current) use of anticoagulants; G89.18 Other acute postprocedural pain
CPT/HCPCS: 11642; 13152; 36415; 85610; 85730; 88305; 88331; 93005; A9270; J1100; J2405; J2704; J7120

== ENCOUNTER 2023-01-12 10:25 | Outpatient (CLI) | payer MEDICARE, SELFPAY ==
--- NOTE | 2023-02-13 12:58 | P.PCNHOL_ITS ---
Holter/Event Monitor Holter/Event Monitor Date of procedure: 01/12/23 Holter/Event Procedure: Event Monitor Indications: Syncope Conclusion: 1. 27 days event monitor between 01/12/23-02/10/23. There are 38 available tr ansmissions for analysis. 2. Predominant rhythm is sinus rhythm. HR range 46-162 bpm; average HR 65 bpm. HR at 46 bpm was on 02/03/23 at 03:27. 3. There are frequent premature supraventricular complexes with total burden of 24%. There are 2 episodes of junctional tachycardia at 105 bpm. 4. There are occasional premature ventricular complexes with total burden of 2%. There are 3 episodes of ventricular tachycardia, fastest at 162 bpm and longest lasting 13 beats. 5. No significant pauses greater than 2 seconds. 6. No symptoms available for correlation.
== END 2023-01-12 10:26 | disposition home or self-care (01) ==
LOC: CHSCARD 10:29
PROVIDERS: PCP Internal Medicine; Visit Provider Internal Medicine
DX: R55 Syncope and collapse (principal)
CPT/HCPCS: 93270

== ENCOUNTER 2023-01-18 14:35 | Outpatient (CLI) | payer MEDICARE, SELFPAY ==
--- NOTE | 2023-01-18 14:40 | ECG_ITS ---
Measurements Intervals [place] Rate: 66 P: 39 DC: 149 QRS: 18 QRSD: 102 T: -33 QT: 437 QTc: 461 Interpretive Statements SINUS RHYTHM FREQUENT ATRIAL PREMATURE COMPLEXES LEFT VENTRICULAR HYPERTROPHY AND ST-T CHANGE T WAVE ABNORMALITY IN INFERIOR LEADS- CONSIDER ISCHEMIA BASELINE ARTIFACT- II, III, AVF, V6 ABNORMAL ECG COMPARED TO ECG 11/23/2022 07:39:32 SINUS RHYTHM NOW PRESENT ATRIAL PREMATURE COMPLEXES NOW PRESENT LEFT VENTRICULAR HYPERTROPHY NOW PRESENT Electronically Signed On 01-18-2023 15:05:38 CDT by Maximo Brown D.O.
== END 2023-01-18 14:36 | disposition home or self-care (01) ==
LOC: CHSCARD 14:37
PROVIDERS: PCP Internal Medicine; Visit Provider Internal Medicine Cardiovascular Disease
DX: R55 Syncope and collapse (principal); R94.31 Abnormal electrocardiogram [ECG] [EKG]
CPT/HCPCS: 93005

== ENCOUNTER 2023-02-19 07:44 | Outpatient (CLI) | payer MEDICARE, SELFPAY ==
--- NOTE | 2023-02-19 07:48 | EST_ITS ---
Patient Info Name: Gonzalo Hernandez Age: 83 years : 1940 Gender: Male Ht: 71 in Wt: 166 lbs BSA: 1.94 m2 HR: 59 bpm BP: 148 / 68 mmHg Heart Rhythm: Bradycardia Technical Quality: Good Exam Date: 02/19/2023 10:17 AM Exam Location: [facility] Patient Status: Outpatient Admit Date: 02/19/2023 Staff Ordering Physician: Maximo Brown DO Attending Provider: Maximo Brown DO Exam Type: CA stress briana w NM Study Info A regadenoson stress test was performed. Summary 1. 1. Negative lexiscan stress test for ischemic ST changes by ECG criteria. 2. 2. Stable hemodynamics throughout the test. 3. 3. Nuclear scan to follow and will be reported separately. Please correlate with it. Protocol: LEXISCAN Stress ECG Details Stage: REST Duration (min): 1 min : 58 sec HR (bpm): 59 SBP (mmHg): 148 DBP (mmHg): 68 Stage: REST Duration (min): 7 min : 7 sec HR (bpm): 62 SBP (mmHg): 148 DBP (mmHg): 68 Stage: STAGE 1 Duration (min): 0 min : 15 sec HR (bpm): 57 SBP (mmHg): 148 DBP (mmHg): 68 Stage: RECOVERY Duration (min): 0 min : 44 sec HR (bpm): 65 SBP (mmHg): 148 DBP (mmHg): 68 Stage: RECOVERY Duration (min): 1 min : 44 sec HR (bpm): 75 SBP (mmHg): 148 DBP (mmHg): 68 Stage: RECOVERY Duration (min): 2 min : 44 sec HR (bpm): 76 SBP (mmHg): 93 DBP (mmHg): 41 Stage: RECOVERY Duration (min): 3 min : 44 sec HR (bpm): 77 SBP (mmHg): 93 DBP (mmHg): 41 Stage: RECOVERY Duration (min): 4 min : 44 sec HR (bpm): 75 SBP (mmHg): 123 DBP (mmHg): 55 Stage: RECOVERY Duration (min): 5 min : 44 sec HR (bpm): 73 SBP (mmHg): 143 DBP (mmHg): 62 Stage: RECOVERY Duration (min): 6 min : 21 sec HR (bpm): 74 SBP (mmHg): 143 DBP (mmHg): 62 Rest HR: 62 bpm Peak HR: 78 bpm Rest Sys BP: 148 mmHg Peak Sys BP: 143 mmHg Max Pred HR: 135 bpm % Max Pred HR: 58 % Target HR: 115 bpm Max RPP: 11,154 bpm*mmHg BP Response: Normal blood pressure response Termination Reason: Completed Protocol Cardiac Symptoms: None Total Time: 0 min : 15 sec Rest Barboza BP: 68 mmHg Peak Barboza BP: 62 mmHg Total Dose: 0.4 mg Resting ECG Sinus bradycardia with frequent PVCs, ST-T wave abnormality in inferior leads. Stress ECG No abnormal ST/T wave changes. Arrhythmias Frequent PVCs. Report Signatures
--- NOTE | 2023-02-19 14:57 | WPDCARIOSTRE ---
Nuclear Stress Test INDICATIONS Indications: Syncope PROCEDURE Procedure Performed: Myocardial Perf Spect-Multi Procedure: Patient underwent a lexiscan stress test and immediately was injected with 27 mCi of cardiolyte. Multiple tomographic images were obtained. These are of good quality. There is no perfusion defect with stress imaging. A separate resting images were obtained after patient was injected with 8.5 mCi of cardiolyte. Multiple tomographic images were obtained. These are of good quality. There is no perfusion defect with rest imaging. CONCLUSION Conclusion: 1. Normal myocardial perfusion imaging demonstrating no perfusion defects with stress or rest imaging. 2. No evidence of reversible ischemia. 3. Left ventriculogram demonstrates normal measured ejection fraction of 54% with no wall motion abnormalities. 4. TID score 1.05 is normal.
== END 2023-02-19 07:45 | disposition home or self-care (01) ==
LOC: CHSCARD 07:45
PROVIDERS: PCP Internal Medicine; Visit Provider Internal Medicine Cardiovascular Disease
DX: R06.09 Other forms of dyspnea (principal)
CPT/HCPCS: 78452; 93017; A9502; J2785

== ENCOUNTER 2023-03-21 20:01 | Outpatient (CLI) | payer MEDICARE, SELFPAY ==
--- NOTE | 2023-04-10 23:25 | WPDSLEEPSTUD ---
Sleep Study Date of Study: 03/21/23 Ordering Provider: Maximo Brown DO Interpreting Physician: Moni Can DO Sleep Study Type: Polysomnogram Height: 1.8 m Weight: 76.657 kg Body Mass Index: 23.6 Neck Circumference (inches): 15.75 [place]: 9 Reason for Sleep Study Patient is an 84 year old male with history of hypertension, diastolic heart dysfunction, history of pulmonary embolism June 2022 on warfarin therapy, and syncopal episodes who underwent a sleep study for evaluation of snoring, frequent nocturnal awakenings and daytime hypersomnia.? Sleep History He never awakens from sleep short of breath.? He never awakens at night with heartburn, belching or cough.? He states he rarely snores and never snores loud enough for others to complain. He rarely has trouble sleeping when he has a cold. He never wakes up gasping for breath during the night. He never has breathing problems at night. He now for sweats excessively at night. He constantly falls asleep during the day. He frequently falls asleep involuntarily and never falls asleep while driving.? He never notices his heart pounding or beating irregularly during the night.? He never experiences loss of muscle tone with strong emotion. He never feels paralyzed on waking or falling asleep. He rarely experiences vivid dreams upon waking or falling asleep. He never feels afraid of going to sleep. He never has nightmares. He rarely recalls his dreams. He occasionally has thoughts racing through his mind. He rarely feels sad or depressed. He constantly feels anxiety or worry about things. He occasional notices parts of his body jerk. He rarely kicks during the night. He occasionally feels crawling or aching feelings in his legs. He rarely feels leg pain at night. He does not grind his teeth during sleep and never has morning jaw pain. He rarely feels bothered by pain during the day and is never awakened by pain during the night. He frequently wakes up feeling stiff in the morning and occasionally wakes up with neck pain. ?? Normal bedtime is around 8:45pm to 9pm on the weekdays and same on the weekends, usually falling asleep within 20 minutes. He typically gets about 6 to 8 hours of sleep per night. His wake up time is around 7:30am to 8:30am on the weekdays and same on the weekends. He typically wakes up around 6 to 8 times per night and can be awake anywhere from 5 minutes to 1 hour, will get up and go to the bathroom. He watches television before falling asleep. He takes naps in the afternoon or evening and typically feels rested after a nap.? Habits:? Never tobacco smoker. Drinks caffeine. No alcohol or recreational substances.? [facility] Social History Social History Smoking status: Never smoker Second hand tobacco smoke exposure: No Alcohol intake: never Substance use: never Substance use type: does not use Lack of Transportation: No Lack of Food: Never True Current Housing: I Have Housing Concerned About Future Housing: No Difficulty Paying Gas/Electric Bills: No Difficulty Paying for Meds: No Currently Unemployed: No Education: High School Diploma/GED Difficulty w/ Childcare or Family Care: No Living arrangements: with family Additional living arrangements comments: Lives with Spiritual care concerns: No Medications Home Medications Medication Instructions Recorded Confirmed Type cyanocobalamin (vitamin B-12) 1,000 mcg PO DAILY 01/11/22 03/01/23 History 1,000 mcg tablet,extended release (Vitamin B-12 ER) docusate sodium 50 mg capsule 50 mg PO TID 01/11/22 03/01/23 History (Stool Softener) losartan 50 mg tablet 50 mg PO BID 01/11/22 03/01/23 History multivit with min-folic 1 tablet PO DAILY 01/11/22 03/01/23 History acid-lutein 200 mcg-137.5 mcg chewable tablet (Adult Multivitamin (w-lutein)) finasteride 5 mg tablet 5 mg PO DAILY 08/25/22 03/01/23 History
[2023-04-10 23:32] VITALS: BMI 23.6
== END 2023-03-22 11:08 | disposition home or self-care (01) ==
PROVIDERS: PCP Internal Medicine; Visit Provider Internal Medicine Cardiovascular Disease
DX: G47.33 Obstructive sleep apnea (adult) (pediatric) (principal); G47.10 Hypersomnia, unspecified
CPT/HCPCS: 95810

== ENCOUNTER 2023-04-25 11:20 | Outpatient (CLI) | payer MEDICARE, SELFPAY ==
[2023-04-25 11:45] LABS: Appearance Urine Cloudy (Clear); Basophils Absolute Auto 0.03 K/mm3 (0.00-0.10); Basophils Percent Auto 0.5 % (0.0-1.0); Bilirubin Urine Negative (Negative); Blood Urine Trace-Intact (Negative); Eosinophils Absolute Auto 0.05 K/mm3 (0.02-0.50); Eosinophils Percent Auto 0.8 % (1.0-6.0); Glucose Urine UA Negative (Negative); Hematocrit 37.2 % (37.0-46.0); Hemoglobin 12.1 g/dL (12.4-15.3); Immature Granulocyte Absolute 0.01 K/mm3 (0.00-0.00); Immature Granulocyte Percent A 0.2 % (0.0-0.0); Ketones Urine Trace (Negative); Leukocyte Esterase Ur 2+ (Negative); Lymphocytes Absolute Auto 2.54 K/mm3 (1.10-4.50); Lymphocytes Percent Auto 39.8 % (18.0-42.0); Mean Corpuscular HGB Conc 32.5 g/dL (32.0-36.0); Mean Corpuscular Hemoglobin 30.6 pg (27.0-31.0); Mean Corpuscular Volume 93.9 fL (78.0-102.0); Mean Platelet Volume 10.4 fl (8.7-11.0); Monocytes Absolute Auto 0.55 K/mm3 (0.10-0.90); Monocytes Percent Auto 8.6 % (2.0-11.0); Neutrophils Absolute Auto 3.2 K/mm3 (1.7-7.2); Neutrophils Percent Auto 50.1 % (50.0-70.0); Nitrate Urine Negative (Negative); Platelet Count Result 299 K/mm3 (150-420); Protein Urine 1+ (Negative); Red Blood Count 3.96 M/mm3 (4.70-6.10); Red Cell Distribution Width 13.2 % (11.6-14.4); White Blood Count 6.4 K/mm3 (4.8-10.8); pH Urine 5.5 (5.0-8.0)
[2023-04-25 11:55] LABS: Add Urine Microscopic? YES; Color Urine Dark Yellow (Yellow)
[2023-04-25 11:56] LABS: Bacteria Urine 1+ /hpf; Squamous Epithelial Cell Urine Rare /hpf (Few); WBC Urine 16-20 /hpf (0-3)
[2023-04-25 12:06] LABS: Anion Gap 6 mmol/L (8-16); Blood Urea Nitrogen 29 mg/dL (7-18); Calcium 8.7 mg/dL (8.5-10.1); Carbon Dioxide 32 mmol/L (21-32); Chloride 99 mmol/L (98-108); Estimated Glomerular Filt Rate 32; Glucose 117 mg/dL (70-99); Osmolality Calculated 290 mOsm/kg (285-295); Sodium 137 mmol/L (136-145)
== END 2023-04-25 11:21 | disposition home or self-care (01) ==
LOC: CHSLAB 11:22
PROVIDERS: PCP Internal Medicine; Visit Provider Internal Medicine
DX: N39.0 Urinary tract infection, site not specified (principal); E86.0 Dehydration
CPT/HCPCS: 36415; 80048; 81001; 85025; 87077; 87086; 87088; 87186

== ENCOUNTER 2023-07-11 19:59 | Outpatient (CLI) | payer MEDICARE, SELFPAY ==
[2023-07-25 18:19] VITALS: BMI 23.1
--- NOTE | 2023-07-25 18:19 | WPDSLEEPSTUD ---
Sleep Study Date of Study: 07/11/23 Ordering Provider: Jelani Dillon APRN Interpreting Physician: Moni Can DO Sleep Study Type: CPAP Titration Height: 1.8 m Weight: 75.296 kg Body Mass Index: 23.1 Neck Circumference (inches): 14.25 [place]: 12 Reason for Sleep Study The patient had a PSG on 03/21/2023 that showed an overall AHI of 20.4 with desaturation down to 86%. He had a central apnea index of 5.6. Sleep History He never awakens from sleep short of breath.? He never awakens at night with heartburn, belching or cough.? He states he rarely snores and never snores loud enough for others to complain. He rarely has trouble sleeping when he has a cold. He never wakes up gasping for breath during the night. He never has breathing problems at night. He now for sweats excessively at night. He constantly falls asleep during the day. He frequently falls asleep involuntarily and never falls asleep while driving.? He never notices his heart pounding or beating irregularly during the night.? He never experiences loss of muscle tone with strong emotion. He never feels paralyzed on waking or falling asleep. He rarely experiences vivid dreams upon waking or falling asleep. He never feels afraid of going to sleep. He never has nightmares. He rarely recalls his dreams. He occasionally has thoughts racing through his mind. He rarely feels sad or depressed. He constantly feels anxiety or worry about things. He occasional notices parts of his body jerk. He rarely kicks during the night. He occasionally feels crawling or aching feelings in his legs. He rarely feels leg pain at night. He does not grind his teeth during sleep and never has morning jaw pain. He rarely feels bothered by pain during the day and is never awakened by pain during the night. He frequently wakes up feeling stiff in the morning and occasionally wakes up with neck pain. ?? Normal bedtime is around 8:45pm to 9pm on the weekdays and same on the weekends, usually falling asleep within 20 minutes. He typically gets about 6 to 8 hours of sleep per night. His wake up time is around 7:30am to 8:30am on the weekdays and same on the weekends. He typically wakes up around 6 to 8 times per night and can be awake anywhere from 5 minutes to 1 hour, will get up and go to the bathroom. He watches television before falling asleep. He takes naps in the afternoon or evening and typically feels rested after a nap.? Habits:? Never tobacco smoker. Drinks caffeine. No alcohol or recreational substances.? [facility] Social History Social History Smoking status: Never smoker Second hand tobacco smoke exposure: No Alcohol intake: never Substance use: never Substance use type: does not use Do You Feel Safe in your Home?: Yes Lack of Transportation: No Lack of Food: Never True Current Housing: I Have Housing Concerned About Future Housing: No Difficulty Paying Gas/Electric Bills: No Difficulty Paying for Meds: No Currently Unemployed: No Education: High School Diploma/GED Difficulty w/ Childcare or Family Care: No Living arrangements: with family Additional living arrangements comments: Lives with Spiritual care concerns: No Medications Home Medications Medication Instructions Recorded Confirmed Type cyanocobalamin (vitamin B-12) 1,000 mcg PO DAILY 01/11/22 06/22/23 History 1,000 mcg tablet,extended release (Vitamin B-12 ER) docusate sodium 50 mg capsule 50 mg PO TID 01/11/22 06/22/23 History (Stool Softener) losartan 50 mg tablet 50 mg PO BID 01/11/22 06/22/23 History multivit with min-folic 1 tablet PO DAILY 01/11/22 06/22/23 History acid-lutein 200 mcg-137.5 mcg chewable tablet (Adult Multivitamin (w-lutein)) finasteride 5 mg tablet 5 mg PO DAILY 08/25/22 06/22/23 History warfarin 4 mg tablet 4 mg PO DAILY 08/25/22 06/22/23 History hydralazine 10 mg tablet 50 mg PO TID
== END 2023-07-12 07:23 | disposition home or self-care (01) ==
LOC: CHSCSM 20:01
PROVIDERS: PCP Internal Medicine; Visit Provider Nurse Practitioner Family
DX: G47.33 Obstructive sleep apnea (adult) (pediatric) (principal)
CPT/HCPCS: 95811

== ENCOUNTER 2023-11-28 10:38 | Outpatient (CLI) | payer MEDICARE, SELFPAY ==
--- NOTE | ~2023-11-28 | XR_ITS ---
XR foot LT min 3V Ordering provider: Sarah Espinal, WHEAT [employer]OWER History: . PAIN IN LEFT FOOT x 8-9 yrs lateral . Comparison: None. FINDINGS: BONES: No acute fracture or dislocation. Calcaneus spur. JOINT SPACES: Normal. No tarsal coalition. SOFT TISSUES: Small radiopaque shadow is seen which may be a foreign body seen in the soft tissues of the plantar aspect IMPRESSION: No acute osseous abnormality left foot. Small radiopaque shadow which may be a foreign body seen in the soft tissues of the plantar aspect Reviewed, dictated and finalized at location A.
== END 2023-11-28 10:39 | disposition home or self-care (01) ==
LOC: CHSLAB 10:40
PROVIDERS: PCP Internal Medicine; Visit Provider Nurse Practitioner Family
DX: M79.672 Pain in left foot (principal)
CPT/HCPCS: 73630

== ENCOUNTER 2023-12-03 10:21 | Outpatient (CLI) | payer MEDICARE, SELFPAY ==
--- NOTE | ~2023-12-03 | US_ITS ---
LEFT LOWER EXTREMITY VENOUS ULTRASOUND Ordering provider: Monique Sandy MD History: . left leg edema . Comparison: None. FINDINGS: --COMMON FEMORAL: Patent and free of thrombus. Normal compressibility, phasic flow and augmentation. --PROXIMAL SUPERFICIAL FEMORAL: Patent and free of thrombus. Normal compressibility, phasic flow and augmentation. --DISTAL SUPERFICIAL FEMORAL: Patent and free of thrombus. Normal compressibility, phasic flow and au gmentation. --POPLITEAL: Patent and free of thrombus. Normal compressibility, phasic flow and augmentation. --POSTERIOR TIBIAL: Patent and free of thrombus. Normal compressibility, phasic flow and augmentation . IMPRESSION: Negative left lower extremity venous US. No deep vein thrombosis. Reviewed, dictated and finalized at location A.
== END 2023-12-03 10:22 | disposition home or self-care (01) ==
LOC: CHSIMG 10:23
PROVIDERS: PCP Internal Medicine; Visit Provider Internal Medicine
DX: M79.89 Other specified soft tissue disorders (principal)
CPT/HCPCS: 93971

== ENCOUNTER 2024-02-12 13:52 | Outpatient (RCR) | payer MEDICARE, SELFPAY ==
--- NOTE | 2024-02-12 16:16 | PTOPEVAL1 ---
Assessment and note entered by Svetlana Dick DPT Evaluation Information Assessment Status Evaluation Diagnosis weakness, impaired gait ICD-10 Condition Codes (PT) R26.9,Weakness R53.1 Onset 02/07/24 Subjective Information patient reports over the last year he has noticed decreased strength and poor balance. he reports in october he fell backwards and believes he passed out and hit his head. he reports he is also getting more forgetful. he denies any other falls but feels he may need an AD. he denies pain. he reports at home and in the community he reaches for objects to steady himself. he reports he was doing all of his yard work but reports that weed eating has become difficult. he reports difficulty with stair navigation. Reported Pain Level Pain Score 0: Self Report Assessment PT Clinical Summary Mr. Hernandez is a 84 year old male who presents to PT with weakness and functional decline. He demonstrates decreased B LE strength, decreased LE flexibility and impaired gait mechanics and poor balance impairing his ability to get up out of a chair, roll over in bed, ambulate prolonged distances and navigate stairs. He would benefit from skilled PT to address impairments and return to PLOF. Plan of Care Interventions Gait Training,Hot Pack/Cold Pack,Manual Therapy, Neuro Re-education,Patient/Caregiver Educati, Therapeutic Activities,Therapeutic Exercise PT Services Indicated Yes Treatment Frequency and 2x weekly for 12 visits Duration These treatments will address the objective and functional deficits as defined above. The patient will be advanced safely and appropriately in order for the patient to progress towards his/her prior level of function. Additional exercises will be introduced and as well as a comprehensive home exercise program upon discharge, if needed, ?to ensure carryover of functional gains achieved in the clinic. This treatment plan has been reviewed and agreement upon by the patient.
--- NOTE | 2024-03-13 15:12 | OPREHPOC ---
Outpatient Therapy Plan of Care This is a Multidisciplinary Plan of Care that may contain components documented by all disciplines (PT, OT, and ST.) PT Problem 1 PT Problem #1 Knowledge Deficit PT Goal 1 Goal / Goal Update patient to demonstrate independence with HEP Target Visit 6 Progress Met PT Problem 2 PT Problem #2 Impaired Strength PT Goal 1 Goal / Goal Update patient to demonstrate 4+/5 B LE strength to improve ability to stand up from chair Target Visit 12 Progress Not Met PT Goal 2 Goal / Goal Update continue PT Problem 3 PT Problem #3 Impaired Functional Mobil PT Goal 1 Goal / Goal Update 1. Patient to complete 5TSTS in <23 seconds to decrease fall risk 2. Patient to complete TUG is <13 seconds to improve house hold and community ambulation 3. patient to deny occurrence of falls Target Visit 12 Progress Not Met PT Goal 2 Goal / Goal Update continue
--- NOTE | 2024-03-13 15:12 | PTOPPROG ---
Assessment and note entered by Cheryl Ramírez, PT Evaluation Information Assessment Status Progress Diagnosis weakness, impaired gait ICD-10 Condition Codes (PT) R26.9,Weakness R53.1 Onset 02/07/24 Subjective Information Gonzalo Hernandez reports he is noting improvements since he has been coming to PT. He feels he can walk better and went for a walk with his for 2 blocks without difficulty. He also notes less hip pain when he walks and feel stronger. He does still have some difficulty getting out of bed and feels a little off balance occasionally. Assessment PT Clinical Summary Gonzalo Hernandez has completed 10 skilled PT visits for weakness and difficulty walking. He is reporting improved ability to walk and feels more comfortable using a cane. He still notes weakness with getting out of bed. He demonstrates improved balance and improved strength but continues to have a moderate fall risk. He is progressing toward his goals well. We will continue skilled PT for 2 additional visits per original POC to continue working on functional strength and mobility. Plan of Care Interventions Patient/Caregiver Educati,Therapeutic Activities, Therapeutic Exercise PT Services Indicated Yes Treatment Frequency and Continue for 2 visits per original POC. Duration These treatments will address the objective and functional deficits as defined above. The patient will be advanced safely and appropriately in order for the patient to progress towards his/her prior level of function. Additional exercises will be introduced and as well as a comprehensive home exercise program upon discharge, if needed, ?to ensure carryover of functional gains achieved in the clinic. This treatment plan has been reviewed and agreement upon by the patient.
--- NOTE | 2024-03-20 14:42 | OPREHPOC ---
Outpatient Therapy Plan of Care This is a Multidisciplinary Plan of Care that may contain components documented by all disciplines (PT, OT, and ST.) PT Problem 1 PT Problem #1 Knowledge Deficit PT Goal 1 Goal / Goal Update patient to demonstrate independence with HEP Target Visit 6 Progress Met PT Problem 2 PT Problem #2 Impaired Strength PT Goal 1 Goal / Goal Update patient to demonstrate 4+/5 B LE strength to improve ability to stand up from chair Target Visit 12 Progress Met PT Goal 2 Goal / Goal Update continue PT Problem 3 PT Problem #3 Impaired Functional Mobil PT Goal 1 Goal / Goal Update 1. Patient to complete 5TSTS in <23 seconds to decrease fall risk 2. Patient to complete TUG is <13 seconds to improve house hold and community ambulation 3. patient to deny occurrence of falls Target Visit 12 Progress Met PT Goal 2 Goal / Goal Update continue
--- NOTE | 2024-03-20 14:42 | PTOPDC ---
Assessment and note entered by Cheryl Ramírez, PT Evaluation Information Assessment Status Discharge Diagnosis weakness, impaired gait ICD-10 Condition Codes (PT) R26.9,Weakness R53.1 Onset 02/07/24 Subjective Information Gonzalo Hernandez reports he is feeling stronger and can walk for longer. He has been walking a couple blocks at a time with his . He denies falls and uses his cane all the time. He would like to make today his last visit. Reported Pain Level Pain Score 0: Self Report Assessment PT Clinical Summary Gonzalo Hernandez has completed 12 skilled PT visits for weakness and impaired gait. He is reporting increased ease with getting out of chairs, improved ability to walk longer distances, and no falls since initiating PT. He demonstrates improved LE strength, improved transfer ability, improved gait, and improved balance. He will be discharged to his independent [facility]. Plan of Care PT Services Indicated No
== END 2024-03-20 16:00 | disposition home or self-care (01) ==
LOC: CHSPT 13:52
PROVIDERS: PCP Internal Medicine; Visit Provider Internal Medicine
DX: R26.9 Unspecified abnormalities of gait and mobility (principal); R53.1 Weakness
CPT/HCPCS: 97110; 97116; 97161; 97530; 97750

== ENCOUNTER 2024-04-11 11:20 | Outpatient (CLI) | payer MEDICARE, SELFPAY ==
[2024-04-11 11:39] LABS: Add Urine Microscopic? YES; Appearance Urine Cloudy (Clear); Basophils Absolute Auto 0.03 K/mm3 (0.00-0.10); Basophils Percent Auto 0.2 % (0.0-1.0); Bilirubin Urine Negative (Negative); Blood Urine Negative (Negative); Color Urine Yellow (Yellow); Glucose Urine UA Negative (Negative); Hematocrit 36.6 % (37.0-46.0); Hemoglobin 12.2 g/dL (12.4-15.3); Immature Granulocyte Absolute 0.19 K/mm3 (0.00-0.00); Ketones Urine Negative (Negative); Leukocyte Esterase Ur 2+ (Negative); Lymphocytes Absolute Auto 1.35 K/mm3 (1.10-4.50); Mean Corpuscular HGB Conc 33.3 g/dL (32-36); Mean Corpuscular Hemoglobin 30.6 pg (27.0-31.0); Mean Corpuscular Volume 91.7 fL (78.0-102.0); Mean Platelet Volume 9.3 fl (8.7-11.0); Monocytes Absolute Auto 0.29 K/mm3 (0.10-0.90); Monocytes Percent Auto 1.5 % (2.0-11.0); Neutrophils Absolute Auto 17.44 K/mm3 (1.70-7.20); Neutrophils Percent Auto 90.3 % (50.0-70.0); Nitrate Urine Negative (Negative); Platelet Count Result 217 K/mm3 (150-420); Protein Urine 2+ (Negative); Red Blood Count 3.99 M/mm3 (4.70-6.10); Red Cell Distribution Width 13.3 % (11.6-14.4); White Blood Count 19.3 K/mm3 (4.8-10.8)
[2024-04-11 11:46] LABS: Bacteria Urine 1+ /hpf; RBC Urine None seen /hpf (0-2); Squamous Epithelial Cell Urine Rare /hpf (Few); WBC Urine >75 /hpf (0-3)
[2024-04-11 11:53] LABS: INR 1.1; Prothrombin Time 12.4 Seconds (9.50-12.1)
[2024-04-11 12:11] LABS: Alanine Aminotransferase 18 U/L (16-63); Alkaline Phosphatase 77 U/L (46-116); Anion Gap 10 mmol/L (4-12); Aspartate Amino Transferase 19 U/L (15-37); Bilirubin,Total 0.9 mg/dL (0.00-1.00); Blood Urea Nitrogen 43 mg/dL (7-18); Calcium 8.8 mg/dL (8.5-10.1); Carbon Dioxide 30 mmol/L (21-32); Chloride 102 mmol/L (98-108); Estimated Glomerular Filt Rate 29; Glucose 147 mg/dL (70-99); Osmolality Calculated 307 mOsm/kg (285-295); Potassium 3.6 mmol/L (3.5-5.1); Sodium 142 mmol/L (136-145); Total Protein 5.8 g/dL (6.4-8.2)
== END 2024-04-11 11:21 | disposition home or self-care (01) ==
LOC: CHSLAB 11:21
PROVIDERS: PCP Family Medicine; Visit Provider Family Medicine
DX: I10 Essential (primary) hypertension (principal); R31.9 Hematuria, unspecified
CPT/HCPCS: 36415; 80053; 81001; 85025; 85610; 85730; 87086; 87186; 88112

== ENCOUNTER 2024-04-11 13:57 | Emergency (ER) | payer MEDICARE, SELFPAY ==
[2024-04-11] VITALS (28 sets, daily range): BP systolic 135–180; BP diastolic 49–83; PULSE 79–89; RESP 18–24; TEMP 36.6–37.8; O2SAT 88–96
--- NOTE | ~2024-04-11 | CT_ITS ---
EXAMINATION: CT abdomen pelvis wo con DATE: 04/11/2024 14:58 INDICATION: Abdominal discomfort. TECHNIQUE: Computed tomography (CT) of the abdomen and pelvis was performed without intravenous contr ast. Automated exposure control and iterative reconstruction technique were employed. The dose-length product was 424.64 mGy-cm. COMPARISON: CT abdomen and pelvis 05/18/22 FINDINGS: The visualized portions of the lung bases demonstrate mild atelectasis. No pleural effusion . The heart size is normal. There are coronary artery calcifications. There are calcifications in the aortic valve. There is a trace pericardial effusion. The liver is normal. Calcifications in the sple en are consistent with old granulomatous disease. There are changes of cholecystectomy. The pancreas and adrenal glands are normal. There are cysts in the kidneys measuring up to 5.9 cm on the right. Th ere is no urolithiasis. There are changes of bilateral inguinal hernia repairs. There is diverticulos is of the colon without evidence of diverticulitis. There is an anastomosis in the transverse colon. There are no dilated loops of bowel. There are no pathologically enlarged lymph nodes. There is no fr ee intraperitoneal fluid. The prostate is mildly enlarged. There is severe lumbar spondylosis. Lumbar levoscoliosis is noted. IMPRESSION: 1. No etiology for the patient's symptoms. Reviewed, dictated and finalized at location A. [facility]
--- NOTE | 2024-04-11 14:00 | ED.MALEGU ---
HPI - Male Genitourinary General Chief complaint: Urogenital-Male Stated complaint: uti complaints sent from dr talamantes office Source: patient Mode of arrival: ambulatory Limitations: no limitations History of Present Illness HPI Narrative: patient is an 84-year-old male with urinary complaints from the primary medical doctor office. Patient had an elevated white blood count and urinary symptoms with gross hematuria in the past few days. He self catheterizes. He is 50% urination on his own and 50% catheterization. He has a urologist at [facility]. He has not been feeling well for the past week. He feels dehydrated. MD Complaint: dysuria and genital injury ( Self catheterization with blood recently) Onset (ago): week(s) (1) Duration: intermittent Location: penis Severity: mild Severity scale (1-10): 2 Quality: burning Relieving factors: none Exacerbating factors: other ( self catheterization) Context: indwelling catheter ( 50% of the time by self catheterization) Associated symptoms: Reports other ( myalgias and arthralgias and tremors/rigors) Related Data Home Medications Medication Instructions Recorded Confirmed cyanocobalamin (vitamin B-12) 1,000 mcg PO DAILY 01/11/22 01/18/24 1,000 mcg tablet,extended release (Vitamin B-12 ER) docusate sodium 50 mg capsule 50 mg PO TID 01/11/22 01/18/24 (Stool Softener) losartan 50 mg tablet 50 mg PO BID 01/11/22 01/18/24 xfgquznbbajp-emzp-slegn acid 200 1 tablet PO DAILY 01/11/22 01/18/24 mcg-lutein 137.5 mcg chewable tablet (Adult Multivitamin (w-lutein)) finasteride 5 mg tablet 5 mg PO DAILY 08/25/22 01/18/24 hydralazine 10 mg tablet 50 mg PO TID 10/09/22 01/18/24 cholecalciferol (vitamin D3) 25 25 mcg PO DAILY 11/16/22 01/18/24 mcg (1,000 unit) capsule terazosin 2 mg capsule 2 mg HS 11/16/22 01/18/24 aspirin 81 mg capsule 81 mg PO DAILY 01/18/24 01/18/24 hydrochlorothiazide 12.5 mg tablet 6.25 mg PO DAILY 01/18/24 01/18/24 vibegron 75 mg tablet (Gemtesa) 75 mg PO DAILY 01/18/24 01/18/24 Allergies Allergy/AdvReac Type Severity Reaction Status Date / Time levofloxacin Allergy Hives Verified 01/18/24 10:33 Review of Systems Review of Systems: All systems reviewed & are unremarkable except as noted in HPI and below Constitutional: Constitutional: Reports no additional constitutional complaints Eyes: Eyes: Reports no additional eye complaints ENT: Reports system reviewed and no additional complaints, except as documented Cardiovascular: Cardiovascular: Reports no additional cardiovascular complaints Respiratory: Respiratory: Reports no additional respiratory complaints Gastrointestinal: Gastrointestinal: Reports no additional gastrointestinal complaints Genitourinary: Genitourinary: Reports no additional male genitourinary complaints Musculoskeletal: Musculoskeletal: Reports no additional musculoskeletal complaints Integumentary/Breasts: Skin/Breast: Reports system reviewed and no additional complaints, except as docu Neurologic: Reports system reviewed and no additional complaints, except as documented Psychiatric: Psychiatric: Reports no additional psychiatric complaints Endocrine: Endocrine: Reports no additional endocrine complaints Hematologic/Lymphatic: Hematologic/Lymphatic: Reports no additional hematologic/lymphatic complaints Allergic/Immunologic: Allergic/Immunologic: Reports no additional allergic/immunologic complaints [facility] Social History Social History Smoking status: Never smoker Second hand tobacco smoke exposure: No Alcohol intake: never Substance use: never Substance use type: does not use Do You Feel Safe in your Home?: Yes Lack of Transportation: No Lack of Food: Never True Current Housing: I Have Housing Concerned About Future Housing: No Difficulty Paying Gas/Electric Bills: No Difficulty Paying for Meds: No Currently Unemployed: No Education: High School Diploma/GED Difficulty w/ Childcare or Family Care: No Living arrangements: with family Additional living arrangements comments: Lives with Spiritual care concerns: No Exam Const: General: cooperative, comfortable and ill appearing HENMT: Head: normal to inspection, No palpable skull fracture present and normocephalic Eyes: General: appearance normal, both eyes and all related structures Visual Daugherty: normal visual daugherty by confrontation Alignment and Position: alignment normal Neck: Neck: normal visual inspection, full ROM and no lymphadenopathy Chest: Chest palpation & inspection: normal inspection of the chest Resp: Effort & Inspection: normal respiratory effort, able to speak in complete sentences, normal respiratory pattern and no audible wheezes Cardio: Jugular venous distension: no JVD Palpation: normal PMI Rate: regular rate Rhythm: regular rhythm Heart sounds: S1 normal heart sound present and S2 normal heart sound present GI: Inspection: normal to inspection, no abdominal wall ecchymosis, no edema and non-distended Auscultation: normal bowel sounds Back/Spine/Pelvis: Back: no CVA tenderness Skin: General skin exam: no rashes or lesions noted, elasticity normal, decreased turgor and pallor Neuro: General: oriented to person, oriented to place, oriented to time, patient oriented x3, gait normal, tone normal and moves all extremities Extrem: General: normal to inspection, full ROM and capillary refill normal Psych: Appearance: grossly normal and well kempt Mental Status: mental status grossly normal Course Vital Signs Vital signs: Vital Signs Temperature 36.6 C 04/11/24 14:09 Pulse Rate 89 04/11/24 14:09 Respiratory Rate 24 H 04/11/24 14:09 Blood Pressure 142/72 H 04/11/24 14:09 Pulse Oximetry 96 04/11/24 14:09 Oxygen Delivery Room Air 04/11/24 14:09 Temperature 37.3 C 04/11/24 15:33 Pulse Rate 79 04/11/24 15:33 Respiratory Rate 18 04/11/24 15:33 Blood Pressure 156/51 H 04/11/24 15:33 Pulse Oximetry 89 L 04/11/24 15:33 Oxygen Delivery Room Air 04/11/24 15:33 MDM - Male Genitourinary MDM Narrative Medical decision making narrative: patient is an 84-year-old male with urinary changes and infection per the primary doctor. We have done a urinary workup at this time and found to be UTI with early sepsis. He does not meet SIRS criteria. But he does have a highly elevated lactic acid. He is dehydrated. We will rehydrate and start antibiotics immediately. We will transfer the patient to see his urologist at [facility]. Lab Data Attestation: I reviewed the patient's lab results. 04/11/24 14:31 04/11/24 14:31 Labs: Lab Results 04/11/24 Range/Units 14:31 WBC 13.4 H (4.8-10.8) K/mm3 RBC 4.03 L (4.70-6.10) M/mm3 Hgb 12.2 L (12.4-15.3) g/dL Hct 37.0 (37.0-46.0) % MCV 91.8 (78.0-102.0) fL MCH 30.3 (27.0-31.0) pg MCHC 33.0 (32-36) g/dL RDW 13.5 (11.6-14.4) % Plt Count 240 (150-420) K/mm3 MPV 10.2 (8.7-11.0) fl Immature Gran % (Auto) 0.4 H (0.0-0.0) % Neut % (Auto) 85.0 H (50.0-70.0) % Lymph % (Auto) 12.3 L (18.0-42.0) % [place] % (Auto) 2.1 (2.0-11.0) % Eos % (Auto) 0.0 L (1.0-6.0) % Baso % (Auto) 0.2 (0.0-1.0) % Lymph # (Auto) 1.65 (1.10-4.50) K/mm3 [place] # (Auto) 0.28 (0.10-0.90) K/mm3 Eos # (Auto) 0.00 L (0.02-0.50) K/mm3 Baso # (Auto) 0.03 (0.00-0.10) K/mm3 Abs Immat Gran (auto) 0.06 H (0.00-0.00) K/mm3 Absolute Neuts (auto) 11.37 H (1.70-7.20) K/mm3 Absolute Nucleated RBC 0.00 (0.00-0.00) K/mm3 Nucleated RBC % 0.0 (0-0.0) % Sodium 140 (136-145) mmol/L Potassium 3.7 (3.5-5.1) mmol/L Chloride 100 (98-108) mmol/L Carbon Dioxide 26 (21-32) mmol/L Anion Gap 14 H (4-12) mmol/L BUN 45 H (7-18) mg/dL Creatinine 2.20 H (0.70-1.30) mg/dL Estim Creat Clear Calc 21 ml/min Estimated GFR 29 L (59 - ) Glucose 103 H (70-99) mg/dL Calculated Osmolality 301 H (285-295) mOsm/kg Lactic Acid 8.3 H (0.4-2.0) mmol/L Calcium 9.0 (8.5-10.1) mg/dL Total Bilirubin 1.1 H (0.00-1.00) mg/dL AST 20 (15-37) U/L ALT 19 (16-63) U/L Alkaline Phosphatase 86 (46-116) U/L Total Protein 6.6 (6.4-8.2) g/dL Albumin 3.1 L (3.4-5.0) g/dL Imaging Data Attestation: I personally reviewed and interpreted this imaging study as follows: Radiologist's impression: CT scan of the abdomen and pelvis without contrast is negative for acute process Discharge Plan Discharge Clinical Impression: Acute UTI, Acute dehydration Hematuria Qualifiers: Hematuria type: gross Qualified Code(s): R31.0 - Gross hematuria Patient Disposition: Acute Care Hospital Condition: Serious Prescriptions: No Action finasteride 5 mg tablet 5 mg PO DAILY hydralazine 10 mg tablet 50 mg PO TID hydrochlorothiazide 12.5 mg tablet 6.25 mg PO DAILY aspirin 81 mg capsule 81 mg PO DAILY Gemtesa 75 mg tablet 75 mg PO DAILY losartan 50 mg tablet 50 mg PO BID cyanocobalamin (vitamin B-12) [Vitamin B-12] 1,000 mcg Tablet Extended Release 1,000 mcg PO DAILY Stool Softener 50 mg Capsule 50 mg PO TID [id number] acid-lutein [Adult Multivitamin (w-lutein)] 200-137.5 mcg Tablet,Chewable 1 tablet PO DAILY terazosin 2 mg capsule 2 mg HS cholecalciferol (vitamin D3) 25 mcg (1,000 unit) Capsule 25 mcg PO DAILY metoprolol succinate 25 mg tablet extended release 24 hr 25 mg PO DAILY Qty: 90 2RF Follow-up/Referrals: Mauricio Talamantes MD [Primary Care Provider] - Time of Disposition: 15:24
[2024-04-11 14:37] LABS: Basophils Absolute Auto 0.03 K/mm3 (0.00-0.10); Basophils Percent Auto 0.2 % (0.0-1.0); Hemoglobin 12.2 g/dL (12.4-15.3); Immature Granulocyte Absolute 0.06 K/mm3 (0.00-0.00); Immature Granulocyte Percent A 0.4 % (0.0-0.0); Lymphocytes Absolute Auto 1.65 K/mm3 (1.10-4.50); Lymphocytes Percent Auto 12.3 % (18.0-42.0); Mean Corpuscular Hemoglobin 30.3 pg (27.0-31.0); Mean Corpuscular Volume 91.8 fL (78.0-102.0); Mean Platelet Volume 10.2 fl (8.7-11.0); Monocytes Absolute Auto 0.28 K/mm3 (0.10-0.90); Monocytes Percent Auto 2.1 % (2.0-11.0); Neutrophils Absolute Auto 11.37 K/mm3 (1.70-7.20); Platelet Count Result 240 K/mm3 (150-420); Red Blood Count 4.03 M/mm3 (4.70-6.10); Red Cell Distribution Width 13.5 % (11.6-14.4); White Blood Count 13.4 K/mm3 (4.8-10.8)
[2024-04-11 14:53] LABS: Alanine Aminotransferase 19 U/L (16-63); Albumin Level 3.1 g/dL (3.4-5.0); Alkaline Phosphatase 86 U/L (46-116); Anion Gap 14 mmol/L (4-12); Aspartate Amino Transferase 20 U/L (15-37); Bilirubin,Total 1.1 mg/dL (0.00-1.00); Blood Urea Nitrogen 45 mg/dL (7-18); Carbon Dioxide 26 mmol/L (21-32); Chloride 100 mmol/L (98-108); Estimated CRCL calculation 21 ml/min; Estimated Glomerular Filt Rate 29; Glucose 103 mg/dL (70-99); Osmolality Calculated 301 mOsm/kg (285-295); Potassium 3.7 mmol/L (3.5-5.1); Sodium 140 mmol/L (136-145); Total Protein 6.6 g/dL (6.4-8.2)
[2024-04-11 14:56] LABS: Lactic Acid Reflex 8.3 mmol/L (0.4-2.0)
[2024-04-11] MEDS: SODIUM CHLORIDE 0.9% IV 1,000 ML 999 ML IV CONT ×2 (15:09→16:35)
[2024-04-11] MEDS: PIPERACILLN/TAZ 3.375GM/NS50ML 3.375 GM/50 ML BAG IVPB (15:10)
[2024-04-11 17:34] LABS: Reflex Lactic Acid Yes or No Add Lactic
--- NOTE | 2024-04-11 17:56 | PC.NURSE ---
informed of transfer room and location. in room with pt throughout er visit. no needs at this time
[2024-04-11 18:05] LABS: Lactic Acid 1.1 mmol/L (0.4-2.0)
--- NOTE | 2024-04-11 19:01 | PC.NURSE ---
report to amado miranda /amado abbott/karlos rn
--- NOTE | 2024-04-12 20:11 | PC.NURSE ---
Called [facility], spoke with ALLEN Pantoja about positive blood cultures, stated she will let hospitalist know. Patient was given Zosyn 3.375 in ED prior to transfer.
--- NOTE | 2024-04-13 12:54 | PC.NURSE ---
PRELIMINARY BLOOD CULTURE; ESCHERICHIA COLI, WILL MONITOR FOR FINAL C&S
--- NOTE | 2024-04-14 09:11 | PC.NURSE ---
Addendum entered by SHAYLA THOMPSON RN 04/14/24 09:19: HOSPITALIST AT [facility] ALREADY MADE AWARE. Original Note: BLOOD CULTURE FINAL RESULT REVEALS ESCHERICHIA COLI SUSCEPTIBLE TO ZOSYN GIVEN 04/11/24.
== END 2024-04-11 19:20 | disposition short-term general hospital (02) ==
PROVIDERS: Emergency Provider Emergency Medicine; PCP Family Medicine
DX: N39.0 Urinary tract infection, site not specified (principal); E86.0 Dehydration
CPT/HCPCS: 36415; 74176; 80053; 83605; 85025; 87040; 87147; 87186; 96361; 96365; 99285; J2543; J7030

== ENCOUNTER 2024-04-11 20:01 | Inpatient (IN) | payer MEDICARE, SELFPAY ==
[2024-04-11 20:09] VITALS: BP 157/56; PULSE 83; RESP 14; TEMP 36.7; O2SAT 93; BMI 21.8; BMI 22.4
[2024-04-11 21:22] VITALS: BP 157/56; PULSE 83; RESP 14; TEMP 36.7; O2SAT 93
[2024-04-12] MEDS: SODIUM CHLORIDE 0.9% IV 1,000 ML 100 ML IV CONT ×3 (02:17→22:43)
[2024-04-12 05:58] VITALS: BP 179/82; PULSE 50; RESP 20; TEMP 37.4; O2SAT 92
--- NOTE | 2024-04-12 06:05 | PM.IMHP ---
H&P: HPI History of Present Illness Date/Time: 04/12/24 06:05 Chief Complaint: Tremors, chills, abnormal UA at primary care office Narrative: 84-year-old male with past medical history of BPH with intermittent straight catheterization who presented to [facility] from primary care physician's office due to gross hematuria for few days. The patient reports that he has to usually start office today with a self catheterization with a rate did catheter once each morning. He uses a catheter with that as the tip cut off of it and he re uses said catheter. He reports that he had actually has not had to use a straight catheterization since before . But he has had increased urinary frequency and urgency for several weeks. He developed gross hematuria for the last few days. He reports that he has been so weak that it takes him several minutes get out of bed in 4 cannot bed he has had loss of bladder control. He feels like he is emptying his bladder completely. He has not been feeling well and has had decreased oral intake. He reports a long history of feeling like he gets food stuck and has to drink water after every bite of food. He has never seen a trail construction worker or had an EGD. He does take a lot of Tums for heartburn symptoms which do not seem to really help. He states that he would feel better if he could belch. When I actually went into evaluate the patient he was actually laying down almost flat drinking water and did have some coughing after drinking water. He was having some chest discomfort after trying to drink while lying down. He reports that this is not unusual for him and he has a history of a small hiatal hernia. I explained to the patient that he should be sitting up to drink but he states that he is so we cannot sit up to drink. He stated that he has become so weak that he is even having trouble rolling over in bed at home. On arrival to outside facility ER patient was febrile with T-max of 100.1?. He was noted to have white count on outpatient labs of 19.3 with repeat of 13.4 at the outside ER he had elevated neutrophil percentage but no bands. He has chronic kidney disease but creatinine was up from baseline of around 1.7 up to 2.2. BUN was up from his baseline around 30 up to the mid 40s he had initial lactic acid of 8.1. He received 1 dose of Zosyn and 2 L of normal saline. Repeat lactic acid level at come down to 1.1. Review of Systems Review of Systems: 12 systems were reviewed with pertinent positives and negatives per HPI. Except as documented in the HPI, all other systems were reviewed and are negative. 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 They have been for 38 years. He has 2 step children and 6 biologic children. He ambulates with a walker. 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 He is a lifelong nonsmoker and denies any significant alcohol use history. Code status: Full code Surrogate decision maker: Smoking status: Never smoker Second hand tobacco smoke exposure: No Alcohol intake: never Substance use: never Substance use type: does not use Do You Feel Safe in your Home?: Yes Lack of Transportation: No Lack of Food: Never True Current Housing: I Have Housing Concerned About Future Housing: No Difficulty Paying Gas/Electric Bills: No Difficulty Paying for Meds: No Currently Unemployed: No Education: High School Diploma/GED Difficulty w/ Childcare or Family Care: No Living arrangements: with family Additional living arrangements comments: Lives with Spiritual care concerns: No Meds Home Medications and Allergies Home Medications Medication Instructions Recorded Confirmed Type cyanocobalamin (vitamin B-12) 1,000 mcg PO DAILY 01/11/22 04/11/24 History 1,000 mcg tablet,extended release (Vitamin B-12 ER) losartan 50 mg tablet 100 mg PO BID 01/11/22 04/11/24 History nxdozelwbhzi-mhoa-zbnrl acid 200 1 tablet PO DAILY 01/11/22 04/11/24 History mcg-lutein 137.5 mcg chewable tablet (Adult Multivitamin (w-lutein)) finasteride 5 mg tablet 5 mg PO DAILY 08/25/22 04/11/24 History hydralazine 10 mg tablet 50 mg PO TID 10/09/22 04/11/24 History cholecalciferol (vitamin D3) 25 25 mcg PO DAILY 11/16/22 04/11/24 History mcg (1,000 unit) capsule terazosin 2 mg capsule 2 mg PO HS 11/16/22 04/12/24 History metoprolol succinate 25 mg 25 mg PO DAILY #90 tabs 02/15/23 04/11/24 Rx tablet,extended release 24 hr aspirin 81 mg capsule 81 mg PO DAILY 01/18/24 04/11/24 History hydrochlorothiazide 12.5 mg tablet 6.25 mg PO DAILY 01/18/24 04/11/24 History vibegron 75 mg tablet (Gemtesa) 75 mg PO DAILY 01/18/24 04/11/24 History docusate sodium 100 mg capsule 100 mg PO DAILY 04/11/24 04/11/24 History pantoprazole 40 mg tablet,delayed 40 mg PO BID 04/11/24 04/11/24 History release peg [id number]-[id number]-yqaudwyw 1 1 - 2 drp EACH EYE PRN PRN Dry Eyes 04/11/24 04/11/24 History %-0.2 %-0.2 % eye drops (Artificial Tears ([id number])) Allergies Allergy/AdvReac Type Severity Reaction Status Date / Time levofloxacin Allergy Hives Verified 01/18/24 10:33 Vital Signs Vital Signs - 24 hr 04/11/24 20:09 04/11/24 20:24 04/11/24 21:22 Temperature 98.1 F 98.1 F Pulse Rate 83 83 Respiratory Rate 14 14 Blood Pressure 157/56 H 157/56 H Pulse Oximetry 93 93 Oxygen Delivery Room Air 04/12/24 05:58 Temperature 99.4 F Pulse Rate 50 L Respiratory Rate 20 Blood Pressure 179/82 H Pulse Oximetry 92 Oxygen Delivery Exam Narrative: Weight 71.1 kg BMI 21.9 Const: Other: Is chronically deconditioned, well-nourished, but otherwise frail appearing laying in the right Semi flower position, patient was coughing after having drank while lying down and was trying to place his cup down on the bedside table when I arrived HENMT: Other: Mucous membranes are tacky, no oral pharyngeal erythema, edentulous Eyes: Other: Pupils are equal and reactive, no scleral icterus, mild conjunctival pallor Neck: Other: No JVD, no lymphadenopathy Resp: Other: Clear to auscultation bilaterally, no increased work of breathing Cardio: Other: Regular rate, regular rhythm, 2+ bilateral radial pedal pulses, no JVD GI: Other: Soft, nontender, nondistended, positive bowel sounds : Other: Continent of urine Skin: Other: Generalized pallor, non jaundice, warm to touch, 2-3 second cap refill Neuro: Other: Alert orient x4, speech is clear, hard of hearing with left hearing aid in place, intact sensation in all extremities Extrem: Other: Generally weak, 3/5 strength on plantar flexion bilateral lower extremities, 4/5 strength bilateral it sales representative, no cyanosis, no edema Psych: Other: Pleasant, cooperative, calm H&P: Results Labs Labs: Labs from outside facility: CBC: WBC 13.4 hemoglobin 12.2 platelet 240 85% neutrophils CMP: Sodium 140 potassium 3.7 chloride 100 bicarb 26 anion gap 14 BUN 45 creatinine 2.2 glucose 103 lactic acid 8 repeat of 1.1 bilirubin 1.1 albumin 3.1 total protein 6.6 Urine cultures pending UA from primary care physician's office: Cloudy in color 2+ protein 2+ urobilinogen 2+ leukocyte esterase greater than 75 wbc's 1+ bacteria Assessment and Plan Assessment and plan (1) Severe sepsis: Code(s): A41.9 - Sepsis, unspecified organism; R65.20 - Severe sepsis without septic shock Status: Acute (2) UTI (urinary tract infection): Qualifiers: Hematuria presence: with hematuria Urinary tract infection type: acute cystitis Qualified Code(s): N30.01 - Acute cystitis with hematuria Code(s): N39.0 - Urinary tract infection, site not specified Status: Acute (3) Acute kidney injury superimposed on stage 3a chronic kidney disease: Code(s): N17.9 - Acute kidney failure, unspecified; N18.31 - Chronic kidney disease, stage 3a Status: Acute (4) BPH with urinary obstruction: Code(s): N40.1 - Benign prostatic hyperplasia with lower urinary tract symptoms; N13.8 - Other obstructive and reflux uropathy Status: Acute (5) Hypertension: Qualifiers: Hypertension type: primary hypertension Qualified Code(s): I10 - Essential (primary) hypertension Code(s): I10 - Essential (primary) hypertension Status: Acute (6) Ambulatory dysfunction: Code(s): R26.2 - Difficulty in walking, not elsewhere classified Status: Acute (7) Dysphagia: Qualifiers: Dysphagia type: esophageal phase Qualified Code(s): R13.19 - Other dysphagia Code(s): R13.10 - Dysphagia, unspecified Status: Acute Plan Patient initially fits severe sepsis criteria outside facility with fever, tachypnea, severe lactic acidosis and leukocytosis in the setting of gross hematuria and UA suggestive of urinary tract infection. Patient received 1 dose of Zosyn at the outside ER and 2 L of isotonic fluids. Patient had resolution of lactic acidosis and overall improved symptoms. Urine cultures and blood cultures were obtained at the outside facility and are pending. Will continue empiric antibiotic therapy will change antibiotics to Rocephin. No prior urine cultures available for comparison. The patient states that he is supposed follow-up with Urology as outpatient with the nurse practitioner in a week or 2 and is post follow-up with Dr. Goff in July. Will place orders for straight catheterization p.r.n. and intermittent postvoid residuals to evaluate whether there may be some component of obstructive uropathy. Patient is requesting Pyridium. This will not cause harm so I will order this. Will repeat CBC and electrolyte panel. Will continue patient's home BPH medications. Patient does have some mild acute kidney injury on chronic kidney disease. Will continue gentle IV fluid hydration and monitor input output closely. Will avoid nephrotoxic medications if possible. Will request PT and OT evaluation due to increasing weakness and worsening ambulatory dysfunction. Patient usually ambulates with a walker but has not been able to get out of bed in recent days. Patient reports chronic dysphagia and was noticed to be coughing after drinking when he was drinking while laying flat in bed. The importance of sitting up in bed with eating or drinking was just with the patient. He did not decreased with this and stated that he would continue to do what he was doing since he was so weak. He is reporting symptoms of dyspepsia a GI cocktail has been ordered. Will place patient on PPI therapy. Patient would benefit from outpatient EGD for further evaluation. Patient does have chronic hypertension in blood pressures have fluctuated somewhat. Will allow for some mildly more elevated blood pressures given the patient's advanced age. I will continue patient's hydralazine and metoprolol. for systolic blood pressures more in the 150s to 160s range instead of 130 to 140s range that I would aim for an a younger patient. I did have discussion regarding code status with the patient. He states that he wants to be a full code because he would not want to leave his with the social drama alone. Patient has been admitted as inpatient status and will require greater than 2 midnight stay for awaiting culture results/sensitivities and treatment of severe sepsis with UTI. Quality VTE Prophylaxis VTE prophylaxis: pharmacologic ordered (Heparin 5000 units subQ q.12 hours.) Hospitalist [facility] Advance Care Plan I have confirmed that the patient's Advanced Care Plan is present, code status is documented, or surrogate decision maker is listed in patient medical record.: Yes Medication Reconciliation I have utilized all available resources to obtain, update and review the patients current medications (includes all prescriptions, OTC, herbals, cannabis, and nutritional supplements).: Yes
[2024-04-12 06:17] LABS: Basophils Percent Auto 0.2 % (0.2-1.2); Eosinophils Absolute Auto 0.2 K/mm3 (0-0.3); Eosinophils Percent Auto 0.9 % (0-4.4); Hematocrit 33.7 % (42.0-52.0); Hemoglobin 11.2 g/dL (14.0-18.0); Immature Granulocyte Absolute 0.23 K/mm3 (0.00-0.031); Immature Granulocyte Percent A 1.1 % (0-0.5); Lymphocytes Absolute Auto 1.48 K/mm3 (0.9-3.2); Mean Corpuscular HGB Conc 33.2 g/dl (32-36); Mean Corpuscular Hemoglobin 30.9 pg (26-34); Mean Corpuscular Volume 92.8 fl (80-100); Mean Platelet Volume 10.5 fl (7.4-10.4); Monocytes Absolute Auto 0.9 K/mm3 (0.1-0.6); Monocytes Percent Auto 4.4 % (2.6-8.5); Neutrophils Absolute Auto 18.3 K/mm3 (1.3-6.7); Neutrophils Percent Auto 86.4 % (45.5-73.1); Platelet Count Result 199 k/mm3 (150-375); Red Blood Count 3.63 M/mm3 (4.6-6.20); Red Cell Distribution Width 13.8 % (11.5-14.5); White Blood Count 21.2 K/mm3 (4.5-10.0)
[2024-04-12 06:26] LABS: Anion Gap 8 mmol/L (4-12); Blood Urea Nitrogen 46 mg/dL (9-20); Calcium 8.4 mg/dL (8.4-10.2); Carbon Dioxide 25 mmol/L (22-30); Chloride 105 mmol/L (98-107); Estimated CRCL calculation 26 ml/min; Estimated Glomerular Filt Rate 34; Glucose 109 mg/dL (65-110); Potassium 3.7 mmol/L (3.4-5.0); Sodium 138 mmol/L (137-145)
[2024-04-12 08:00] VITALS: BP 171/63; PULSE 77; RESP 17; TEMP 37.2; O2SAT 93
[2024-04-12 08:37] VITALS: PULSE 60
[2024-04-12] MEDS: DOCUSATE SODIUM 100 MG CAPSULE PO (08:37)
[2024-04-12] MEDS: MULTIVITAMINS /C LUTEIN (CENTRUM SILVER) TABLET *BKC 1 TAB PO (08:37)
[2024-04-12] MEDS: ASPIRIN 81 MG ENTERIC TABLET PO (08:37)
[2024-04-12] MEDS: LOSARTAN POTASSIUM 50 MG TABLET 100 MG PO ×2 (08:37→21:54)
[2024-04-12] MEDS: METOPROLOL SUCCINATE EXT REL 25 MG TABCR PO (08:37)
[2024-04-12] MEDS: PANTOPRAZOLE 40 MG TABLET PO ×2 (08:38→21:54)
[2024-04-12] MEDS: FINASTERIDE 5 MG TABLET PO (08:38)
[2024-04-12] MEDS: CHOLECALCIFEROL 1,000 UNITS TABLET 1000 UNITS PO (08:38)
[2024-04-12] MEDS: CYANOCOBALAMIN 1,000 MCG TABLET 1000 MCG PO (08:38)
[2024-04-12] MEDS: hydrALAZINE HCL 50 MG TABLET PO ×3 (08:38→16:11)
[2024-04-12] MEDS: hydroCHLOROthiazide 6.25 MG TABLET PO (08:38)
[2024-04-12] MEDS: HEPARIN SODIUM 5,000 UNITS/ML VIAL 5000 UNITS SUB-Q ×2 (08:39→21:54)
[2024-04-12] MEDS: PHENAZOPYRIDINE HCL 100 MG TABLET 200 MG PO ×3 (09:19→16:11)
--- NOTE | 2024-04-12 11:47 | P.PNIM_ITS ---
Progress Note: A&P Assessment and Plan (1) Severe sepsis: Code(s): A41.9 - Sepsis, unspecified organism; R65.20 - Severe sepsis without septic shock Status: Acute Assessment and Plan: source- urine Patient initially fits severe sepsis criteria outside facility with fever, tachypnea, severe lactic acidosis and leukocytosis Patient received 1 dose of Zosyn at the outside ER and 2 L of isotonic fluids Patient had resolution of lactic acidosis and overall improved symptoms. Urine cultures and blood cultures are pending. Will continue empiric antibiotic therapy will change antibiotics to Rocephin. No prior urine cultures available for comparison. straight catheterization p.r.n. and intermittent postvoid residuals Pyridium ordered (2) UTI (urinary tract infection): Qualifiers: Urinary tract infection type: acute cystitis Hematuria presence: with hematuria Qualified Code(s): N30.01 - Acute cystitis with hematuria Code(s): N39.0 - Urinary tract infection, site not specified Status: Acute (3) Acute kidney injury superimposed on stage 3a chronic kidney disease: Code(s): N17.9 - Acute kidney failure, unspecified; N18.31 - Chronic kidney disease, stage 3a Status: Acute Assessment and Plan: Patient does have some mild acute kidney injury on chronic kidney disease. Will continue gentle IV fluid hydration and monitor input output closely. Will avoid nephrotoxic medications if possible. (4) BPH with urinary obstruction: Code(s): N40.1 - Benign prostatic hyperplasia with lower urinary tract symptoms; N13.8 - Other obstructive and reflux uropathy Status: Acute (5) Hypertension: Qualifiers: Hypertension type: primary hypertension Qualified Code(s): I10 - Essential (primary) hypertension Code(s): I10 - Essential (primary) hypertension Status: Acute Assessment and Plan: Patient does have chronic hypertension continue patient's hydralazine and metoprolol. for systolic blood pressures more in the 150s to 160s (6) Ambulatory dysfunction: Code(s): R26.2 - Difficulty in walking, not elsewhere classified Status: Acute Assessment and Plan: pt ot ordered (7) Dysphagia: Qualifiers: Dysphagia type: esophageal phase Qualified Code(s): R13.19 - Other dysphagia Code(s): R13.10 - Dysphagia, unspecified Status: Acute Time Spent With Patient Time with patient: Greater than 35 minutes Subjective Date/time seen: 04/12/24 11:47 Interval history: Tremors, chills, abnormal UA at primary care office Narrative: 84-year-old male with past medical history of BPH with intermittent straight catheterization who presented to [facility] from primary care physician's office due to gross hematuria for few days. The patient reports that he has to usually start office today with a self catheterization with a rate did catheter once each morning. He uses a catheter with that as the tip cut off of it and he re uses said catheter. He reports that he had actually has not had to use a straight catheterization since before . But he has had increased urinary frequency and urgency for several weeks. He developed gross hematuria for the last few days. He reports that he has been so weak that it takes him several minutes get out of bed in 4 cannot bed he has had loss of bladder control. He feels like he is emptying his bladder completely. He has not been feeling well and has had decreased oral intake. He reports a long history of feeling like he gets food stuck and has to drink water after every bite of food. He has never seen a facilities director or had an EGD. He does take a lot of Tums for heartburn symptoms which do not seem to really help. He states that he would feel better if he could belch. When I actually went into evaluate the patient he was actually laying down almost flat drinking water and did have some coughing after drinking water. He was having some chest discomfort after trying to drink while lying down. He reports that this is not unusual for him and he has a history of a small hiatal hernia. I explained to the patient that he should be sitting up to drink but he states that he is so we cannot sit up to drink. He stated that he has become so weak that he is even having trouble rolling over in bed at home. On arrival to outside facility ER patient was febrile with T-max of 100.1?. He was noted to have white count on outpatient labs of 19.3 with repeat of 13.4 at the outside ER he had elevated neutrophil percentage but no bands. He has chronic kidney disease but creatinine was up from baseline of around 1.7 up to 2.2. BUN was up from his baseline around 30 up to the mid 40s he had initial lactic acid of 8.1. He received 1 dose of Zosyn and 2 L of normal saline. Repeat lactic acid level at come down to 1.1. pt is seen and examined. reported that he quit self catheterizing after thanksgiving is it was bloody and he didnot feel he needs it. supposed to see urology in the next couple od weeks Review of Systems Review of Systems: 12 systems were reviewed with pertinent positives and negatives per HPI. Except as documented in the HPI, all other systems were reviewed and are negative. Gastrointestinal: Gastrointestinal: Reports nausea Exam Narrative: Weight 71.1 kg BMI 21.9 Const: General: comfortable Objective Data Vital Signs Vital Signs: Vital Signs - 24 hr 04/11/24 20:09 04/11/24 20:24 04/11/24 21:22 Temperature 98.1 F 98.1 F Pulse Rate 83 83 Respiratory Rate 14 14 Blood Pressure 157/56 H 157/56 H Pulse Oximetry 93 93 Oxygen Delivery Room Air 04/12/24 05:58 04/12/24 08:37 04/12/24 08:00 Temperature 99.4 F 99.0 F Pulse Rate 50 L 60 77 Respiratory Rate 20 17 Blood Pressure 179/82 H 171/63 H Pulse Oximetry 92 93 Oxygen Delivery Intake/Output Intake/Output: Intake & Output 04/09/24 04/10/24 04/11/24 04/12/24 23:59 23:59 23:59 23:59 Intake Total 320 Balance 320 Meds/Results Medications: Active Medications Generic Name Dose Route Start Last Admin Trade Name Freq PRN Reason Stop Dose Admin Acetaminophen 650 mg 04/12/24 01:01 Acetaminophen 325 Mg Tablet PO Q4H PRN Mild Pain (1-3) or Fever Artificial Tears 2 drop 04/12/24 01:04 Artificial Tears Ophth Soln 15 Ml Bottle EACH EYE QID PRN Dry Eyes Aspirin 81 mg 04/12/24 09:00 04/12/24 08:37 Aspirin 81 Mg Enteric Tablet PO 81 mg QAM JYOTI Administration Cyanocobalamin 1,000 mcg 04/12/24 09:00 04/12/24 08:38 Cyanocobalamin 1,000 Mcg Tablet PO 1,000 mcg DAILY JYOTI Administration Docusate Sodium 100 mg 04/12/24 09:00 04/12/24 08:37 Docusate Sodium 100 Mg Capsule PO 100 mg DAILY JYOTI Administration Finasteride 5 mg 04/12/24 09:00 04/12/24 08:38 Finasteride 5 Mg Tablet PO 5 mg DAILY JYOTI Administration Heparin Sodium (Porcine) 5,000 units 04/12/24 09:00 04/12/24 08:39 Heparin Sodium 5,000 Units/Ml Vial SUB-Q 5,000 units Q12HR JYOTI Administration Hydralazine HCl 50 mg 04/12/24 09:00 04/12/24 08:38 Hydralazine Hcl 50 Mg Tablet PO 50 mg TID JYOTI Administration Hydrochlorothiazide 6.25 mg 04/12/24 09:00 04/12/24 08:38 Hydrochlorothiazide 6.25 Mg Tablet PO 6.25 mg QAM JYOTI Administration Sodium Chloride 1,000 mls @ 100 mls/hr 04/12/24 01:05 04/12/24 02:17 Normal Saline Iv IV CONT 100 mls/hr .Q10H JYOTI Administration Ceftriaxone Sodium 1 gm in 50 mls @ 100 mls/hr 04/12/24 07:00 04/12/24 07:48 Rocephin 1 Gm/Ns 50 Ml IVPB 100 mls/hr Q24H JYOTI Administration Losartan Potassium 100 mg 04/12/24 09:00 04/12/24 08:37 Losartan Potassium 50 Mg Tablet PO 100 mg Q12HR JYOTI Administration Metoprolol Succinate 25 mg 04/12/24 09:00 04/12/24 08:37 Metoprolol Succinate Ext Rel 25 Mg Tabcr PO 25 mg DAILY JYOTI Administration Multivitamins/Minerals 1 tab 04/12/24 09:00 04/12/24 08:37 Multivitamins /C Lutein (Centrum Silver) Tablet *Bkc PO 1 tab QAM JYOTI Administration Pantoprazole Sodium 40 mg 04/12/24 09:00 04/12/24 08:38 Pantoprazole 40 Mg Tablet PO 40 mg Q12HR JYOTI Administration Phenazopyridine HCl 200 mg 04/12/24 09:00 04/12/24 09:19 Phenazopyridine Hcl 100 Mg Tablet PO 200 mg TIDWM JYOTI Administration Terazosin HCl 2 mg 04/12/24 21:00 Terazosin Hcl 1 Mg Capsule PO HS [facility] Vitamin D 1,000 units 04/12/24 09:00 04/12/24 08:38 Cholecalciferol 1,000 Units Tablet PO 1,000 units DAILY JYOTI Administration Labs Labs: Laboratory Results - last 24 hr 04/12/24 05:25 WBC 21.2 H RBC 3.63 L Hgb 11.2 L Hct 33.7 L MCV 92.8 MCH 30.9 MCHC 33.2 RDW 13.8 Plt Count 199 MPV 10.5 H Immature Gran % (Auto) 1.1 H Neut % (Auto) 86.4 H Lymph % (Auto) 7.0 L [place] % (Auto) 4.4 Eos % (Auto) 0.9 Baso % (Auto) 0.2 Lymph # (Auto) 1.48 [place] # (Auto) 0.9 H Eos # (Auto) 0.2 Baso # (Auto) 0.0 Abs Immat Gran (auto) 0.23 H Absolute Neuts (auto) 18.3 H Absolute Nucleated RBC 0.000 Nucleated RBC % 0.0 Sodium 138 Potassium 3.7 Chloride 105 Carbon Dioxide 25 Anion Gap 8 BUN 46 H Creatinine 1.90 H Estim Creat Clear Calc 26 Estimated GFR 34 L Glucose 109 Calcium 8.4 Quality VTE Prophylaxis VTE prophylaxis: pharmacologic ordered (Heparin 5000 units subQ q.12 hours.)
[2024-04-12] MEDS: BELLADONNA ALK/PHENOB ELIX 10 ML, MAG HYDROX/ALUMINUM HYD/SIMETH 30 ML, LIDOCAINE HCL 2... PO (14:27)
[2024-04-12 16:00] VITALS: BP 148/59; PULSE 72; RESP 17; TEMP 36.6; O2SAT 97
[2024-04-12 20:31] VITALS: BP 166/62; PULSE 74; RESP 20; TEMP 37.3; O2SAT 91
[2024-04-12] MEDS: TERAZOSIN HCL 1 MG CAPSULE 2 MG PO (21:54)
[2024-04-12 23:57] VITALS: BP 171/68; PULSE 81; RESP 20; TEMP 37.1; O2SAT 91
[2024-04-13] VITALS (8 sets, daily range): BP systolic 148–175; BP diastolic 49–73; PULSE 68–105; RESP 16–24; TEMP 36.2–36.6; O2SAT 90–98
--- NOTE | 2024-04-13 09:00 | PM.IMPN ---
Progress Note: A&P Assessment and Plan (1) Severe sepsis: Code(s): A41.9 - Sepsis, unspecified organism; R65.20 - Severe sepsis without septic shock Status: Acute (2) UTI (urinary tract infection): Qualifiers: Hematuria presence: with hematuria Urinary tract infection type: acute cystitis Qualified Code(s): N30.01 - Acute cystitis with hematuria Code(s): N39.0 - Urinary tract infection, site not specified Status: Acute (3) Acute kidney injury superimposed on stage 3a chronic kidney disease: Code(s): N17.9 - Acute kidney failure, unspecified; N18.31 - Chronic kidney disease, stage 3a Status: Acute (4) BPH with urinary obstruction: Code(s): N40.1 - Benign prostatic hyperplasia with lower urinary tract symptoms; N13.8 - Other obstructive and reflux uropathy Status: Acute (5) Hypertension: Qualifiers: Hypertension type: primary hypertension Qualified Code(s): I10 - Essential (primary) hypertension Code(s): I10 - Essential (primary) hypertension Status: Acute (6) Ambulatory dysfunction: Code(s): R26.2 - Difficulty in walking, not elsewhere classified Status: Acute (7) Dysphagia: Qualifiers: Dysphagia type: esophageal phase Qualified Code(s): R13.19 - Other dysphagia Code(s): R13.10 - Dysphagia, unspecified Status: Acute Plan Patient initially fits severe sepsis criteria outside facility with fever, tachypnea, severe lactic acidosis and leukocytosis in the setting of gross hematuria and UA suggestive of urinary tract infection. Patient received 1 dose of Zosyn at the outside ER and 2 L of isotonic fluids. Patient had resolution of lactic acidosis and overall improved symptoms. Urine cultures and blood cultures were obtained at the outside facility and are pending. Will continue empiric antibiotic therapy will change antibiotics to Rocephin. No prior urine cultures available for comparison. The patient states that he is supposed follow-up with Urology as outpatient with the nurse practitioner in a week or 2 and is post follow-up with Dr. Goff in July. continue straight catheterization p.r.n. and intermittent postvoid residuals to evaluate whether there may be some component of obstructive uropathy. Patient does have some mild acute kidney injury on chronic kidney disease. Will continue gentle IV fluid hydration and monitor input output closely. Will avoid nephrotoxic medications if possible. Patient reports chronic dysphagia and was noticed to be coughing after drinking when he was drinking while laying flat in bed. The importance of sitting up in bed with eating or drinking was just with the patient. He did not decreased with this and stated that he would continue to do what he was doing since he was so weak. He is reporting symptoms of dyspepsia a GI cocktail has been ordered. Will place patient on PPI therapy. Patient would benefit from outpatient EGD for further evaluation. Patient does have chronic hypertension in blood pressures have fluctuated somewhat. Will allow for some mildly more elevated blood pressures given the patient's advanced age. Time Spent With Patient Time with patient: Greater than 35 minutes Subjective Date/time seen: 04/13/24 09:00 Interval history: Tremors, chills, abnormal UA at primary care office Narrative: 84-year-old male with past medical history of BPH with intermittent straight catheterization who presented to [facility] from primary care physician's office due to gross hematuria for few days. The patient reports that he has to usually start office today with a self catheterization with a rate did catheter once each morning. He uses a catheter with that as the tip cut off of it and he re uses said catheter. He reports that he had actually has not had to use a straight catheterization since before . But he has had increased urinary frequency and urgency for several weeks. He developed gross hematuria for the last few days. He reports that he has been so weak that it takes him several minutes get out of bed in 4 cannot bed he has had loss of bladder control. He feels like he is emptying his bladder completely. He has not been feeling well and has had decreased oral intake. He reports a long history of feeling like he gets food stuck and has to drink water after every bite of food. He has never seen a hot plate plywood press offbearer or had an EGD. He does take a lot of Tums for heartburn symptoms which do not seem to really help. He states that he would feel better if he could belch. When I actually went into evaluate the patient he was actually laying down almost flat drinking water and did have some coughing after drinking water. He was having some chest discomfort after trying to drink while lying down. He reports that this is not unusual for him and he has a history of a small hiatal hernia. I explained to the patient that he should be sitting up to drink but he states that he is so we cannot sit up to drink. He stated that he has become so weak that he is even having trouble rolling over in bed at home. On arrival to outside facility ER patient was febrile with T-max of 100.1?. He was noted to have white count on outpatient labs of 19.3 with repeat of 13.4 at the outside ER he had elevated neutrophil percentage but no bands. He has chronic kidney disease but creatinine was up from baseline of around 1.7 up to 2.2. BUN was up from his baseline around 30 up to the mid 40s he had initial lactic acid of 8.1. He received 1 dose of Zosyn and 2 L of normal saline. Repeat lactic acid level at come down to 1.1. pt is seen and examined. reported that he quit self catheterizing after thanksgiving is it was bloody and he did not feel he needs it. supposed to see urology in the next couple of weeks 04/13- feeling better today- more alert, somewhat stronger - worked with pt/ot -did well. no nausea Review of Systems Review of Systems: 12 systems were reviewed with pertinent positives and negatives per HPI. Except as documented in the HPI, all other systems were reviewed and are negative. Gastrointestinal: Gastrointestinal: Reports nausea Exam Narrative: Weight 71.1 kg BMI 21.9 Const: General: comfortable Other: Is chronically deconditioned, well-nourished, but otherwise frail appearing laying in the right Semi flower position, patient was coughing after having drank while lying down and was trying to place his cup down on the bedside table when I arrived HENMT: Other: Mucous membranes are tacky, no oral pharyngeal erythema, edentulous Eyes: Other: Pupils are equal and reactive, no scleral icterus, mild conjunctival pallor Neck: Other: No JVD, no lymphadenopathy Resp: Other: Clear to auscultation bilaterally, no increased work of breathing Cardio: Other: Regular rate, regular rhythm, 2+ bilateral radial pedal pulses, no JVD GI: Other: Soft, nontender, nondistended, positive bowel sounds : Other: Continent of urine Skin: Other: Generalized pallor, non jaundice, warm to touch, 2-3 second cap refill Neuro: Other: Alert orient x4, speech is clear, hard of hearing with left hearing aid in place, intact sensation in all extremities Extrem: Other: Generally weak, 3/5 strength on plantar flexion bilateral lower extremities, 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, no cyanosis, no edema Psych: Other: Pleasant, cooperative, calm Objective Data Vital Signs Vital Signs: Vital Signs - 24 hr 04/12/24 16:00 04/12/24 20:31 04/12/24 23:57 Temperature 97.8 F 99.2 F 98.8 F Pulse Rate 72 74 81 Respiratory Rate 17 20 20 Blood Pressure 148/59 H 166/62 H 171/68 H Pulse Oximetry 97 91 91 Oxygen Delivery 04/12/24 20:00 04/13/24 05:35 Temperature 97.7 F Pulse Rate 73 Respiratory Rate 20 Blood Pressure 158/67 H Pulse Oximetry 90 Oxygen Delivery Room Air Intake/Output Intake/Output: Intake & Output 04/10/24 04/11/24 04/12/24 04/13/24 23:59 23:59 23:59 23:59 Intake Total 2711.7 420 Output Total 2 Balance 2709.7 420 Meds/Results Medications: Active Medications Generic Name Dose Route Start Last Admin Trade Name Freq PRN Reason Stop Dose Admin Acetaminophen 650 mg 04/12/24 01:01 Acetaminophen 325 Mg Tablet PO Q4H PRN Mild Pain (1-3) or Fever Artificial Tears 2 drop 04/12/24 01:04 Artificial Tears Ophth Soln 15 Ml Bottle EACH EYE QID PRN Dry Eyes Aspirin 81 mg 04/12/24 09:00 04/12/24 08:37 Aspirin 81 Mg Enteric Tablet PO 81 mg QAM JYOTI Administration Cyanocobalamin 1,000 mcg 04/12/24 09:00 04/12/24 08:38 Cyanocobalamin 1,000 Mcg Tablet PO 1,000 mcg DAILY JYOTI Administration Docusate Sodium 100 mg 04/12/24 09:00 04/12/24 08:37 Docusate Sodium 100 Mg Capsule PO 100 mg DAILY JYOTI Administration Docusate Sodium 100 mg 04/12/24 13:46 Docusate Sodium 100 Mg Capsule PO Q12H PRN Constipation Finasteride 5 mg 04/12/24 09:00 04/12/24 08:38 Finasteride 5 Mg Tablet PO 5 mg DAILY JYOTI Administration Heparin Sodium (Porcine) 5,000 units 04/12/24 09:00 04/12/24 21:54 Heparin Sodium 5,000 Units/Ml Vial SUB-Q 5,000 units Q12HR JYOTI Administration Hydralazine HCl 50 mg 04/12/24 09:00 04/12/24 16:11 Hydralazine Hcl 50 Mg Tablet PO 50 mg TID JYOTI Administration Hydrochlorothiazide 6.25 mg 04/12/24 09:00 04/12/24 08:38 Hydrochlorothiazide 6.25 Mg Tablet PO 6.25 mg QAM JYOTI Administration Sodium Chloride 1,000 mls @ 100 mls/hr 04/12/24 01:05 04/12/24 22:43 Normal Saline Iv IV CONT 100 mls/hr .Q10H JYOTI Administration Ceftriaxone Sodium 1 gm in 50 mls @ 100 mls/hr 04/12/24 07:00 04/13/24 06:25 Rocephin 1 Gm/Ns 50 Ml IVPB 100 mls/hr Q24H JYOTI Administration Losartan Potassium 100 mg 04/12/24 09:00 04/12/24 21:54 Losartan Potassium 50 Mg Tablet PO 100 mg Q12HR JYOTI Administration Metoprolol Succinate 25 mg 04/12/24 09:00 04/12/24 08:37 Metoprolol Succinate Ext Rel 25 Mg Tabcr PO 25 mg DAILY JYOTI Administration Multivitamins/Minerals 1 tab 04/12/24 09:00 04/12/24 08:37 Multivitamins /C Lutein (Centrum Silver) Tablet *Bkc PO 1 tab QAM JYOTI Administration Ondansetron HCl 4 mg 04/12/24 13:45 Ondansetron Inj 4 Mg/2 Ml Vial IV PUSH Q4H PRN Nausea And Vomiting Pantoprazole Sodium 40 mg 04/12/24 09:00 04/12/24 21:54 Pantoprazole 40 Mg Tablet PO 40 mg Q12HR JYOTI Administration Phenazopyridine HCl 200 mg 04/12/24 09:00 04/12/24 16:11 Phenazopyridine Hcl 100 Mg Tablet PO 200 mg TIDWM JYOTI Administration Polyethylene Glycol 17 gm 04/12/24 13:50 Polyethylene Glycol 3350 17 Gm Powd.Pack PO QAM PRN Constipation Terazosin HCl 2 mg 04/12/24 21:00 04/12/24 21:54 Terazosin Hcl 1 Mg Capsule PO 2 mg HS JYOTI Administration Vitamin D 1,000 units 04/12/24 09:00 04/12/24 08:38 Cholecalciferol 1,000 Units Tablet PO 1,000 units DAILY JYOTI Administration Quality VTE Prophylaxis VTE prophylaxis: pharmacologic ordered (Heparin 5000 units subQ q.12 hours.)
[2024-04-13] MEDS: PHENAZOPYRIDINE HCL 100 MG TABLET 200 MG PO ×3 (09:11→17:12)
[2024-04-13] MEDS: FINASTERIDE 5 MG TABLET PO (09:12)
[2024-04-13] MEDS: CHOLECALCIFEROL 1,000 UNITS TABLET 1000 UNITS PO (09:12)
[2024-04-13] MEDS: ASPIRIN 81 MG ENTERIC TABLET PO (09:12)
[2024-04-13] MEDS: LOSARTAN POTASSIUM 50 MG TABLET 100 MG PO ×2 (09:12→20:50)
[2024-04-13] MEDS: hydrALAZINE HCL 50 MG TABLET PO ×3 (09:12→17:12)
[2024-04-13] MEDS: DOCUSATE SODIUM 100 MG CAPSULE PO (09:12)
[2024-04-13] MEDS: CYANOCOBALAMIN 1,000 MCG TABLET 1000 MCG PO (09:13)
[2024-04-13] MEDS: hydroCHLOROthiazide 6.25 MG TABLET PO (09:13)
[2024-04-13] MEDS: METOPROLOL SUCCINATE EXT REL 25 MG TABCR PO (09:13)
[2024-04-13] MEDS: MULTIVITAMINS /C LUTEIN (CENTRUM SILVER) TABLET *BKC 1 TAB PO (09:13)
[2024-04-13] MEDS: PANTOPRAZOLE 40 MG TABLET PO ×2 (09:13→20:50)
[2024-04-13] MEDS: HEPARIN SODIUM 5,000 UNITS/ML VIAL 5000 UNITS SUB-Q ×2 (09:14→20:50)
[2024-04-13] MEDS: SODIUM CHLORIDE 0.9% IV 1,000 ML 100 ML IV CONT ×2 (10:27→20:50)
[2024-04-13] MEDS: TERAZOSIN HCL 1 MG CAPSULE 2 MG PO (20:50)
[2024-04-14 06:10] VITALS: BP 160/80; PULSE 92; RESP 20; TEMP 36.5; O2SAT 82
[2024-04-14] MEDS: SODIUM CHLORIDE 0.9% IV 1,000 ML 100 ML IV CONT (06:33)
[2024-04-14 09:42] VITALS: O2SAT 91
[2024-04-14 10:06] LABS: Hematocrit 31.3 % (42.0-52.0); Hemoglobin 10.3 g/dL (14.0-18.0); Mean Corpuscular HGB Conc 32.9 g/dl (32-36); Mean Corpuscular Hemoglobin 30.3 pg (26-34); Mean Corpuscular Volume 92.1 fl (80-100); Mean Platelet Volume 10.6 fl (7.4-10.4); Platelet Count Result 169 k/mm3 (150-375); Red Cell Distribution Width 14.4 % (11.5-14.5); White Blood Count 9.6 K/mm3 (4.5-10.0)
[2024-04-14 10:20] LABS: Anion Gap 4 mmol/L (4-12); Blood Urea Nitrogen 43 mg/dL (9-20); Carbon Dioxide 24 mmol/L (22-30); Chloride 110 mmol/L (98-107); Estimated CRCL calculation 30 ml/min; Estimated Glomerular Filt Rate 41; Glucose 175 mg/dL (65-110); Potassium 3.2 mmol/L (3.4-5.0); Sodium 138 mmol/L (137-145)
[2024-04-14] MEDS: PHENAZOPYRIDINE HCL 100 MG TABLET 200 MG PO ×2 (10:20→13:07)
[2024-04-14] MEDS: ASPIRIN 81 MG ENTERIC TABLET PO (10:21)
[2024-04-14] MEDS: CHOLECALCIFEROL 1,000 UNITS TABLET 1000 UNITS PO (10:22)
[2024-04-14] MEDS: DOCUSATE SODIUM 100 MG CAPSULE PO (10:22)
[2024-04-14] MEDS: CYANOCOBALAMIN 1,000 MCG TABLET 1000 MCG PO (10:22)
[2024-04-14] MEDS: FINASTERIDE 5 MG TABLET PO (10:23)
[2024-04-14] MEDS: HEPARIN SODIUM 5,000 UNITS/ML VIAL 5000 UNITS SUB-Q (10:24)
[2024-04-14] MEDS: hydrALAZINE HCL 50 MG TABLET PO ×2 (10:24→13:07)
[2024-04-14] MEDS: LOSARTAN POTASSIUM 50 MG TABLET 100 MG PO (10:24)
[2024-04-14] MEDS: hydroCHLOROthiazide 6.25 MG TABLET PO (10:24)
[2024-04-14 10:25] VITALS: PULSE 76
[2024-04-14] MEDS: PANTOPRAZOLE 40 MG TABLET PO (10:25)
[2024-04-14] MEDS: METOPROLOL SUCCINATE EXT REL 25 MG TABCR PO (10:25)
[2024-04-14] MEDS: MULTIVITAMINS /C LUTEIN (CENTRUM SILVER) TABLET *BKC 1 TAB PO (10:25)
[2024-04-14 10:26] VITALS: O2SAT 91
--- NOTE | 2024-04-14 10:44 | P.DS_ITS ---
DS: Admitting Diagnosis Discharge Date 04/14 Admitting Diagnosis weakness, hematuria DS: Discharge Diagnosis Discharge Diagnosis (1) Severe sepsis: Code(s): A41.9 - Sepsis, unspecified organism; R65.20 - Severe sepsis without septic shock Status: Acute (2) UTI (urinary tract infection): Qualifiers: Hematuria presence: with hematuria Urinary tract infection type: acute cystitis Qualified Code(s): N30.01 - Acute cystitis with hematuria Code(s): N39.0 - Urinary tract infection, site not specified Status: Acute (3) Acute kidney injury superimposed on stage 3a chronic kidney disease: Code(s): N17.9 - Acute kidney failure, unspecified; N18.31 - Chronic kidney disease, stag e 3a Status: Acute (4) BPH with urinary obstruction: Code(s): N40.1 - Benign prostatic hyperplasia with lower urinary tract symptoms; N13.8 - Other obstructive and reflux uropathy Status: Acute (5) Hypertension: Qualifiers: Hypertension type: primary hypertension Qualified Code(s): I10 - Essential (primary) hypertension Code(s): I10 - Essential (primary) hypertension Status: Acute (6) Ambulatory dysfunction: Code(s): R26.2 - Difficulty in walking, not elsewhere classified Status: Acute (7) Dysphagia: Qualifiers: Dysphagia type: esophageal phase Qualified Code(s): R13.19 - Other dysphagia Code(s): R13.10 - Dysphagia, unspecified Status: Acute (8) Bacteremia: Code(s): R78.81 - Bacteremia Status: Acute DS: Summary Hospital Course Hospital Course: Tremors, chills, abnormal UA at primary care office Narrative: 84-year-old male with past medical history of BPH with intermittent straight catheterization who presented to [facility] from primary care physician's office due to gross hematuria for few days. The patient reports that he has to usually start office today with a self catheterization with a rate did catheter once each morning. He uses a catheter with that as the tip cut off of it and he re uses said catheter. He reports that he had actually has not had to use a straight catheterization since before . But he has had increased urinary frequency and urgency for several weeks. Patient initially fits severe sepsis criteria outside facility with fever, tachypnea, severe lactic acidosis and leukocytosis in the setting of gross hematuria and UA suggestive of urinary tract infection. Patient received 1 dose of Zosyn at the outside ER and 2 L of isotonic fluids. Patient had resolution of lactic acidosis and overall improved symptoms. Urine cultures and blood cultures were obtained at the outside facility and are pending. Will continue empiric antibiotic therapy will change antibiotics to Rocephin. No prior urine cultures available for comparison. The patient states that he is supposed follow-up with Urology as outpatient with the nurse practitioner in a week or 2 and is post follow-up with Dr. Goff in July. continue straight catheterization p.r.n. and intermittent postvoid residuals to evaluate whether there may be some component of obstructive uropathy. Patient does have some mild acute kidney injury on chronic kidney disease. Will continue gentle IV fluid hydration and monitor input output closely. Avoid nephrotoxic medications if possible. Blood cultures were positive for e coli- pt remained on rocephin -received a dose 04/14 and will downgrade to po bactrum to cover UTI and bacteremia- last dose 04/20 090 pm Patient reports chronic dysphagia and was noticed to be coughing after drinking when he was drinking while laying flat in bed. The importance of sitting up in bed with eating or drinking was just with the patient. He did not decreased with this and stated that he would continue to do what he was doing since he was so weak. He is reporting symptoms of dyspepsia a GI cocktail has been ordered. Continue PPI therapy. Patient would benefit from outpatient EGD for further evaluation. Pt and educated on making sure pt is sitting upright when he eats. Pt worked with PT and did well. Safe for discharge with PO antibiotics and close f/u with PCP and urology. Status at Discharge Functional status at discharge: uses cane/walker Overall status at discharge: patient is progressing back to baseline Time Spent with Patient Time attestation: Total time spent providing and/or coordinating discharge services: Time spent: Greater than 30 minutes Exam Narrative: Weight 71.1 kg BMI 21.9 Const: General: comfortable Other: Is chronically deconditioned, well-nourished, but otherwise frail appearing laying in the right Semi flower position, patient was coughing after having drank while lying down and was trying to place his cup down on the bedside table when I arrived HENMT: Other: Mucous membranes are tacky, no oral pharyngeal erythema, edentulous Eyes: Other: Pupils are equal and reactive, no scleral icterus, mild conjunctival pallor Neck: Other: No JVD, no lymphadenopathy Resp: Other: Clear to auscultation bilaterally, no increased work of breathing Cardio: Other: Regular rate, regular rhythm, 2+ bilateral radial pedal pulses, no JVD GI: Other: Soft, nontender, nondistended, positive bowel sounds : Other: Continent of urine Skin: Other: Generalized pallor, non jaundice, warm to touch, 2-3 second cap refill Neuro: Other: Alert orient x4, speech is clear, hard of hearing with left hearing aid in place, intact sensation in all extremities Extrem: Other: Generally weak, 3/5 strength on plantar flexion bilateral lower extremities, 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, no cyanosis, no edema Psych: Other: Pleasant, cooperative, calm DS: Data Data Completed and Pending Labs on day of discharge: Labs from last 24 hours 04/14/24 09:56 WBC 9.6 RBC 3.40 L Hgb 10.3 L Hct 31.3 L MCV 92.1 MCH 30.3 MCHC 32.9 RDW 14.4 Plt Count 169 MPV 10.6 H Sodium 138 Potassium 3.2 L Chloride 110 H Carbon Dioxide 24 Anion Gap 4 BUN 43 H Creatinine 1.60 H Estim Creat Clear Calc 30 Estimated GFR 41 L Glucose 175 H Calcium 8.0 L Discharge Plan Discharge Attending physician on discharge: Oliver Espitia Discharging Clinician: Ariana Cintron Patient Disposition: Home Health Service Activity: september shower Diet: as tolerated and heart healthy Discharge Instructions: you were admitted for uti/weakness. You were diagnosed with UTI- given IV antibiotics and was switched to PO Take bactrum (it will cover UTI and bacteremia)- last dose 04/20 090 pm. We will repeat your blood cultures today, 04/14. If your blood cultures are positive aga in- i will call you- you will need to come back to be treated with IV antibiotics. But based on your overall improved condition and improved labs- i am not anticipating positive blood cultures. you potassium was slightly low- please take your vitamins, eats fruits and veggies and make sure you f/u with pcp for recheck Patient Instructions: Antibiotic Form Stand Alone Forms: General Discharge Information Follow-up/Referrals: Mauricio Talamantes MD [Primary Care Provider] - 2 Weeks Discharge Medications: New sulfamethoxazole-trimethoprim 800-160 mg Tablet 2 tab PO Q12HR Qty: 12 0RF Continued finasteride 5 mg tablet 5 mg PO DAILY hydralazine 10 mg tablet 50 mg PO TID hydrochlorothiazide 12.5 mg tablet 6.25 mg PO DAILY aspirin 81 mg capsule 81 mg PO DAILY Gemtesa 75 mg tablet 75 mg PO DAILY losartan 50 mg tablet 100 mg PO BID cyanocobalamin (vitamin B-12) [Vitamin B-12] 1,000 mcg Tablet Extended Release 1,000 mcg PO DAILY [id number] acid-lutein [Adult Multivitamin (w-lutein)] 200-137.5 mcg Tablet,Chewable 1 tablet PO DAILY terazosin 2 mg capsule 2 mg PO HS cholecalciferol (vitamin D3) 25 mcg (1,000 unit) Capsule 25 mcg PO DAILY pantoprazole 40 mg Tablet,Delayed Release (Dr/Ec) 40 mg PO BID docusate sodium 100 mg Capsule 100 mg PO DAILY Artificial Tears([id number]) 1-0.2-0.2 % Drops 1 - 2 drp EACH EYE PRN PRN (Reason: Dry Eyes) metoprolol succinate 25 mg tablet extended release 24 hr 25 mg PO DAILY Qty: 90 2RF Date of admission: 04/12/24 07:39 Primary Care Provider: Mauricio Talamantes Admitting Provider: Sudarshan Singleton Attending physician on admission: Sudarshan Singleton Condition: Stable Quality VTE Prophylaxis VTE prophylaxis: pharmacologic ordered (Heparin 5000 units subQ q.12 hours.) Hospitalist MIPS Heart Failure (Exclusion) Patient has history of Heart Transplant or Left Ventricular Assistive Device?: No IF YES, STOP HERE Heart Failure (Qualifier) Patient has current or prior documentation of LVEF less than or equal to 40%, or mod/servere depressed LVSF?: No IF NO, STOP HERE
[2024-04-14 13:03] VITALS: BP 154/66; PULSE 91; RESP 16; TEMP 36.2; O2SAT 94
--- NOTE | 2024-04-21 09:50 | PC.NURSE ---
Blood cx are negative.
== END 2024-04-14 14:04 | disposition home health service (06) | DRG 872 ==
PROVIDERS: Internal Medicine; Admitting Provider Internal Medicine; PCP Family Medicine; Visit Provider Nurse Practitioner
DX: A41.51 Sepsis due to Escherichia coli [E. coli] (principal); N30.01 Acute cystitis with hematuria; N17.9 Acute kidney failure, unspecified; R65.20 Severe sepsis without septic shock; G47.33 Obstructive sleep apnea (adult) (pediatric); I13.10 Hypertensive heart and chronic kidney disease without heart failure, with stage 1 through stage 4 chronic kidney disease, or unspecified chronic kidney disease; N18.31 Chronic kidney disease, stage 3a; N40.1 Benign prostatic hyperplasia with lower urinary tract symptoms; R13.19 Other dysphagia; Z85.828 Personal history of other malignant neoplasm of skin; Z85.038 Personal history of other malignant neoplasm of large intestine; Z86.711 Personal history of pulmonary embolism; Z90.49 Acquired absence of other specified parts of digestive tract; Z98.41 Cataract extraction status, right eye; Z98.42 Cataract extraction status, left eye; Z96.1 Presence of intraocular lens
CPT/HCPCS: 36415; 80048; 85025; 85027; 87040; 97161; 97165; A9270; G0378; J0696; J1644; J7030

== ENCOUNTER 2024-04-24 08:33 | Outpatient (CLI) | payer MEDICARE, SELFPAY ==
--- NOTE | ~2024-04-24 | US_ITS ---
US renal BI 04/24/2024 09:10 Indication: Post void residual Procedure: High-resolution transabdominal ultrasound of the pelvis Comparison: No prior studies for comparison. Findings: Bladder wall is unremarkable. No focal bladder wall abnormality. Prevoid volume 10 6 cc. Po stvoid volume 3 cc. No bladder wall thickening. No abnormal pelvic masses are seen. Impression: 1: Unremarkable pelvic ultrasound. Reviewed, dictated and finalized at location B. ROPOMETRIST Impression: 1: Unremarkable pelvic ultrasound.
== END 2024-04-24 08:34 | disposition home or self-care (01) ==
LOC: CHSIMG 08:35
PROVIDERS: PCP Internal Medicine; Visit Provider Internal Medicine
DX: N40.0 Benign prostatic hyperplasia without lower urinary tract symptoms (principal)
CPT/HCPCS: 76775

== ENCOUNTER 2025-01-02 13:52 | Outpatient (CLI) | payer MEDICARE, SELFPAY ==
--- NOTE | ~2025-01-02 | CT_ITS ---
Exam: CT abdomen and pelvis with contrast Clinical History: [Abnormal urine cytology ] Comparison: [ CT abdomen and pelvis 04/11/2024] Technique: Multiple axial CT images of the abdomen and pelvis were obtained with and without IV contrast. Sagittal and coronal reformatted images were obtained. FINDINGS: Lung bases: [Small opacities in the lower lungs similar to the prior study. ] Liver: [There is a too small to characterize low-attenuation lesion in the lateral segment of the left lobe of the liver.No mass.] [ No intrahepatic biliary duct dilatation.] Gallbladder: [Surgically absent Common bile duct: [ Normal caliber.] [ No stones.] Spleen: [ Within normal limits.] Pancreas: [ No mass. No pancreatic fluid collection.] Adrenals: [ No masses.] Kidneys: [ No masses. No hydronephrosis.][ There are a few too small to characterize low-attenuation lesions in the kidneys.] Stable bilateral renal cysts. No renal, ureteral or bladder calculi identified. Lymph nodes: [ No adenopathy in the abdomen or pelvis.] Stomach, small bowel and colon: [ No bowel wall thickening or obstruction.]. Stable probable prior surgical change in bowel in the left abdomen. Moderate to large amount of stool. Peritoneum cavity: [ No mesenteric fat stranding or fluid.] Bladder: Small left posterior bladder diverticulum. Mild concentric thickening of the gomez of the bladder. Osseous structures: [ No acute fracture or destructive lesion.] [ Multilevel degenerative change in the visualized spine.] Grade 1 anterolisthesis of L4 on L5, unchanged. Abdominal aorta: [ No aneurysm.] Moderate atherosclerotic disease in the abdominal aorta. Additional findings: [ None of significance.] IMPRESSION: 1. Concentric thickening of the gomez of the bladder. Differential includes incomplete bladder wall distention, sequelae from bladder outlet obstruction or cystitis. 2. No renal, ureteral or bladder calculi. 3. Cholecystectomy. 4. Moderate to large amount of stool. 5. Bilateral renal cysts. 6. Small left posterior bladder diverticulum Reviewed, dictated and finalized at location Q. IMPRESSION: 1. Concentric thickening of the gomez of the bladder. Differential includes inc omplete bladder wall distention, sequelae from bladder outlet obstruction or cy stitis. 2. No renal, ureteral or bladder calculi. 3. Cholecystectomy. 4. Moderate to large amount of stool. 5. Bilateral renal cysts. 6. Small left posterior bladder diverticulum
[2025-01-02 14:19] LABS: Estimated Glomerular Filt Rate 37
== END 2025-01-02 13:53 | disposition home or self-care (01) ==
PROVIDERS: PCP Internal Medicine; Visit Provider Nurse Practitioner
DX: R82.90 Unspecified abnormal findings in urine (principal); R93.41 Abnormal radiologic findings on diagnostic imaging of renal pelvis, ureter, or bladder; Z90.49 Acquired absence of other specified parts of digestive tract; N28.1 Cyst of kidney, acquired; N32.3 Diverticulum of bladder
CPT/HCPCS: 74178; Q9967

== ENCOUNTER 2025-02-12 12:18 | Emergency (ER) | payer MEDICARE, SELFPAY ==
--- NOTE | ~2025-02-12 | XR_ITS ---
EXAMINATION: XR ribs LT 2V DATE: 02/12/2025 12:41 INDICATION: Left rib pain post injury TECHNIQUE: 3 views of the left ribs were obtained. COMPARISON: None FINDINGS: No rib fractures identified. Mild linear discoid atelectasis/scarring at the left lung base. No other airspace opacities throughout the left lung and visualized portion of the medial right lung. No pleural effusion or pneumothorax. Heart size is normal. Cholecystectomy clips in right upper quadrant. Suture line in the left abdomen. IMPRESSION: 1. Mild linear discoid atelectasis in the left lung base. No left rib fracture or other acute cardiopulmonary disease. Reviewed, dictated and finalized at location A.
[2025-02-12 12:20] VITALS: BP 186/67; PULSE 65; RESP 18; TEMP 36.7; O2SAT 98
--- NOTE | 2025-02-12 13:00 | ED.FALL ---
HPI - Fall General Chief Complaint: Fall Stated Complaint: fall Time Seen by Provider: 02/12/25 12:25 Source: patient and family Mode of arrival: ambulatory Limitations: no limitations History of Present Illness HPI Narrative: this is an 85-year-old male with a history of hypertension and BPH presents after he fell and hit the left side of his lower anterior ribs on an open drawer patient tripped did not lose his balance with no dizziness no chest pain no shortness of breath no fever chills no other injuries noted. MD complaint: fall Onset (ago): hour(s) Fall from: standing Fall witnessed: no Place fall occurred: home Loss of consciousness: none Severity scale (1-10): 3 Related Data Home Medications ?Medication ?Instructions ?Recorded ?Confirmed ?Last Taken ?Type cyanocobalamin (vitamin B-12) 1,000 mcg PO DAILY 01/11/22 08/23/24 01/24/22 History 1,000 mcg tablet,extended release (Vitamin B-12 ER) losartan 50 mg tablet 100 mg PO BID 01/11/22 08/23/24 01/24/22 History qsmxknojlnik-xzno-zftte acid 200 1 tablet PO DAILY 01/11/22 08/23/24 01/24/22 History mcg-lutein 137.5 mcg chewable tablet (Adult Multivitamin (w-lutein)) finasteride 5 mg tablet 5 mg PO DAILY 08/25/22 08/23/24 Unknown History hydralazine 10 mg tablet 50 mg PO TID 10/09/22 08/23/24 Unknown History cholecalciferol (vitamin D3) 25 25 mcg PO DAILY 11/16/22 08/23/24 Unknown History mcg (1,000 unit) capsule terazosin 2 mg capsule 2 mg PO HS 11/16/22 08/23/24 Unknown History aspirin 81 mg capsule 81 mg PO DAILY 01/18/24 08/23/24 Unknown History hydrochlorothiazide 12.5 mg tablet 6.25 mg PO DAILY 01/18/24 08/23/24 Unknown History vibegron 75 mg tablet (Gemtesa) 75 mg PO DAILY 01/18/24 08/23/24 Unknown History docusate sodium 100 mg capsule 100 mg PO DAILY 04/11/24 08/23/24 Unknown History pantoprazole 40 mg tablet,delayed 40 mg PO BID 04/11/24 08/23/24 Unknown History release peg [id number] 1 1 - 2 drp EACH EYE PRN PRN Dry Eyes 04/11/24 08/23/24 Unknown History %-0.2 %-0.2 % eye drops (Artificial Tears ([id number])) Allergies Allergy/AdvReac Type Severity Reaction Status Date / Time levofloxacin Allergy Hives Verified 02/12/25 12:58 Review of Systems Review of Systems: All systems reviewed & are unremarkable except as noted in HPI and below PMFSH Past Medical History Medical History Ambulatory dysfunction Basal cell carcinoma (BCC) of [place] 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 Brown Pulmonary embolism (2022) History of colon cancer Status post chemotherapy Surgical History Surgical History H/O right inguinal hernia repair H/O bilateral inguinal hernia repair Status post cataract extraction of both eyes with insertion of intraocular lens History of spinal surgery and approximately 2008 History of colonoscopy with polypectomy History of ventral hernia repair With mesh x2 Hx of cholecystectomy History of colon resection Due to colon cancer Social History Social History Social History: Patient lives with his 2nd . They have been for 38 years. He has 2 step children and 6 biologic children. He ambulates with a walker. 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 He is a lifelong nonsmoker and denies any significant alcohol use history. Code status: Full code Surrogate decision maker: Smoking status: Never smoker Second hand tobacco smoke exposure: No Alcohol intake: never Substance use: never Substance use type: does not use Do You Feel Safe in your Home?: Yes Lack of Transportation: No Lack of Food: Never True Current Housing: I Have Housing Concerned About Future Housing: No Difficulty Paying Gas/Electric Bills: No Difficulty Paying for Meds: No Currently Unemployed: No Education: High School Diploma/GED Difficulty w/ Childcare or Family Care: No Living arrangements: with family Additional living arrangements comments: Lives with Spiritual care concerns: No Exam Const: General: healthy appearing, no acute distress and alert Nutritional Appearance: well nourished and thin Orientation/consciousness: patient oriented x3 Limitations: no limitations Chest: Other: Left anterior lower rib area with some redness and tenderness with palpation Resp: Effort & Inspection: normal respiratory effort Auscultation: clear to auscultation bilaterally Cardio: Rate: regular rate Rhythm: regular rhythm GI: GI Palp: Yes Soft to palpation Auscultation: normal bowel sounds Skin: Wounds: wounds noted Neuro: General: patient oriented x3 and moves all extremities Extrem: General: normal to inspection, no clubbing, cyanosis or edema and no pedal edema Course Course Emergency Course: Medical decision making narrative: patient was evaluated by myself in the emergency department. History is obtained from patient who is an independent historian and physical physical exam performed and witnessed by nurse Gonzalez. External records were reviewed at this time. Patient had x-ray performed and shows no acute fractures no rib fractures as read independently by myself and by Radiology. . Repeat assessment patient doing well on repeat exam with no shortness breath no acute distress. Patient's pain level 3/10 declined any pain medicine at this time. Patient agrees with discussion after shared medical decision making and agrees with discharge. All questions answered to the patient's satisfaction. Advised follow-up with primary in 3 to 5 days. Patient provided with strict return precautions and return to emergency department if any worsening symptoms. Vital Signs Vital signs: Vital Signs Temperature 36.7 C 02/12/25 12:20 Pulse Rate 65 02/12/25 12:20 Respiratory Rate 18 02/12/25 12:20 Blood Pressure 186/67 H 02/12/25 12:20 Pulse Oximetry 98 02/12/25 12:20 Oxygen Delivery Room Air 02/12/25 12:20 Temperature 36.7 C 02/12/25 12:20 Pulse Rate 65 02/12/25 12:20 Respiratory Rate 18 02/12/25 12:20 Blood Pressure 186/67 H 02/12/25 12:20 Pulse Oximetry 98 02/12/25 12:20 Oxygen Delivery Room Air 02/12/25 12:20 Critical Care Time Critical Care Time Critical Care Time: No Discharge Plan Discharge Clinical Impression: Contusion of rib Qualifiers: Encounter type: initial encounter Qualified Code(s): S29.8XXA - Other specified injuries of thorax, initial encounter Patient Disposition: Home Condition: Stable Instructions: Antibiotic Form, Concussion (ED), Rib Contusion (ED) Additional Instructions: advised patient to take Tylenol as needed, and follow with primary if symptoms persist or worsen. Patient Language: Guyanese Prescriptions: No Action finasteride 5 mg tablet 5 mg PO DAILY hydralazine 10 mg tablet 50 mg PO TID hydrochlorothiazide 12.5 mg tablet 6.25 mg PO DAILY aspirin 81 mg capsule 81 mg PO DAILY Gemtesa 75 mg tablet 75 mg PO DAILY losartan 50 mg tablet 100 mg PO BID cyanocobalamin (vitamin B-12) [Vitamin B-12] 1,000 mcg Tablet Extended Release 1,000 mcg PO DAILY smjidvhz-lqs-gxkww acid-lutein [Adult Multivitamin (w-lutein)] 200-137.5 mcg Tablet,Chewable 1 tablet PO DAILY terazosin 2 mg capsule 2 mg PO HS cholecalciferol (vitamin D3) 25 mcg (1,000 unit) Capsule 25 mcg PO DAILY pantoprazole 40 mg Tablet,Delayed Release (Dr/Ec) 40 mg PO BID docusate sodium 100 mg Capsule 100 mg PO DAILY Artificial Tears(oe-ovxn-dprl) 1-0.2-0.2 % Drops 1 - 2 drp EACH EYE PRN PRN (Reason: Dry Eyes) metoprolol succinate 25 mg tablet extended release 24 hr 25 mg PO DAILY Qty: 90 2RF Follow-up/Referrals: Monique Sandy MD [Primary Care Provider, Internal Medicine]
== END 2025-02-12 13:08 | disposition home or self-care (01) ==
PROVIDERS: Emergency Provider Emergency Medicine; PCP Internal Medicine
DX: S29.8XXA Other specified injuries of thorax, initial encounter (principal); I10 Essential (primary) hypertension; I12.9 Hypertensive chronic kidney disease with stage 1 through stage 4 chronic kidney disease, or unspecified chronic kidney disease; N18.30 Chronic kidney disease, stage 3 unspecified; W01.0XXA Fall on same level from slipping, tripping and stumbling without subsequent striking against object, initial encounter
CPT/HCPCS: 71100; 99283